=== PATIENT | female | born 1970 | race Caucasian/White ===

== ENCOUNTER 2022-07-27 08:53 | Emergency (ER) | payer MEDICAID, SELFPAY ==
[2022-07-27 09:20] VITALS: BP 149/100; PULSE 85; RESP 20; TEMP 36.9; O2SAT 97; BMI 30.9
--- NOTE | 2022-07-27 09:32 | EXP.UTC ---
Discharge Plan Disposition Patient Disposition: Home, Self-Care Condition: Good Prescriptions Prescriptions: New ondansetron 4 mg tablet,disintegrating 4 mg PO Q8H PRN (Reason: nausea and vomiting) Qty: 10 0RF No Action venlafaxine 150 mg capsule,extended release 24hr 150 mg PO DAILY Label Comments: TAKE 1 CAPSULE BY MOUTH EVERY DAY naproxen 500 mg tablet 500 mg PO DAILY albuterol sulfate [Ventolin HFA] 90 mcg/actuation HFA aerosol inhaler inhalation Label Comments: INHALE 2 PUFFS EVERY 4 HOURS NEEDED FOR WHEEZING OR SHORTNESS OF AIR loperamide 2 mg capsule 2 mg PO BID PRN venlafaxine 75 mg capsule,extended release 24hr 50 mg PO DAILY amoxicillin-pot clavulanate 875-125 mg tablet 1 tab PO BID 10 Days Qty: 20 0RF Referrals Follow up/Referrals: Provider,Referral, MD [Primary Care Provider] - See instructions Activity Restrictions/Add. Instructions Additional Instructions/Restrictions: Drink extra fluids with and between meals. If you have difficulty drinking, try very small amounts of water or suck on ice chips. ? Avoid fruit juices, as these do not replace minerals and can actually increase diarrhea. ? Children and adults can use sports drinks to replenish electrolytes. Younger children and infants should use products formulated for children, like oral rehydration solutions. ? Eat food in small amounts and let your stomach recover. ? Get lots of rest. You may feel tired or weak. ? No greasy or fried foods for the next 24-48 hours BRAT diet Bananas Rice Apples and [place] ? Make sure to drink plenty of liquids ? Return if needed ? Straight to ER if any life threatening symptoms ? Zofran as prescribed ? Follow up with family doctor in the next 48-72 hours if no improvement or any worsening of symptoms Call today and make appointment with your PCP Clinical Impressions Clinical Impression: Nausea Stand Alone Forms Stand Alone Forms: Work/School Release Instructions Patient Instructions: DI for Nausea -- Adult, Ondansetron Discharge ED Provider: Kanchan Merrill [facility] HPI General Stated complaint: Nausea Mode of Arrival: Ambulatory Source of Information: Patient Limitations: No Limitations Time Seen by Provider: 07/27/22 09:32 Description of Symptoms (Recalled from Triage Doc. by RN): PATIENT C/O NAUSEA, DECREASED APPETITE, AND INTERMITTEN DIZZINESS X 1 WEEK HEENT Symptoms (Recalled from RN notes): No Resp Symptoms (Recalled from RN notes): No Skin Symptoms (Recalled from RN notes): No MS Symptoms (Recalled from RN notes): No Functional Status (Recalled from RN notes): WNL History of Present Illness Provider Complaint: Patient states that at times she will go through bouts of nausea that may last a couple weeks at times States that she has been having nausea for the last week States that she has tried Zofran but not helping much States that she was hoping to try phenergan to see if that would help States that she has dizziness on and off also but not had any in the last couple of days Denies vomiting denies diarrhea Denies fever denies chills just states she gets nauseous at times Related Data Home Medications Medication Instructions Recorded Confirmed albuterol sulfate 90 mcg/actuation g inhalation 07/24/22 07/24/22 aerosol inhaler (Ventolin HFA) loperamide 2 mg capsule 2 mg PO BID PRN 07/24/22 07/24/22 naproxen 500 mg tablet 500 mg PO DAILY 07/24/22 07/24/22 venlafaxine 150 mg 150 mg PO DAILY 07/24/22 07/24/22 capsule,extended release 24 hr venlafaxine 75 mg capsule,extended 50 mg PO DAILY 07/24/22 07/24/22 release 24 hr Previous Rx's Medication Instructions Recorded amoxicillin 875 mg-potassium 1 tab PO BID 10 days #20 tabs 07/24/22 clavulanate 125 mg tablet ondansetron 4 mg disintegrating 4 mg PO Q8H PRN nausea and 07/27/22 tablet vomiting #10 tabs
[2022-07-27 09:44] VITALS: BP 149/100; PULSE 85; RESP 20; TEMP 36.9; O2SAT 97
== END 2022-07-27 09:49 | disposition home or self-care (01) ==
PROVIDERS: Emergency Provider Nurse Practitioner
DX: R11.0 Nausea (principal)
CPT/HCPCS: 99212; G0463

== ENCOUNTER 2022-08-24 07:17 | Emergency (ER) | payer MEDICAID, SELFPAY ==
[2022-08-24 07:34] VITALS: BP 140/86; PULSE 84; RESP 19; TEMP 37.1; O2SAT 93; BMI 29.2
[2022-08-24 07:59] LABS: Coronavirus 19, PCR Not Detected (NotDetected); Influenza A, PCR Not Detected (NotDetected); Influenza B, PCR Not Detected (NotDetected)
[2022-08-24 08:26] LABS: Basophils # 0.1 K/mm3 (0-0.2); Basophils % 0.9 % (0.1-2.0); Eosinophils # 0.1 K/mm3 (0.0-0.4); Eosinophils % 1.5 % (0.1-12.0); Hematocrit 40.9 % (37.0-47.0); Hemoglobin 13.2 g/dL (12.2-16.2); Lymphocytes # 1.9 K/mm3 (0.7-4.5); Lymphocytes % 26.7 % (10-50); Mean Corpuscular HGB Conc 32.2 g/dL (31.8-35.4); Mean Corpuscular Hemoglobin 33.3 pg (27.0-31.2); Mean Corpuscular Volume 103.5 fl (81-99); Mean Platelet Volume 8.3 fl (7.4-10.4); Monocytes # 0.3 K/mm3 (0.1-1.0); Monocytes % 4.8 % (1.7-9.3); Neutrophils # 4.6 K/mm3 (1.8-7.8); Neutrophils % 66.2 % (37.0-80.0); Platelet Count 284 K/mm3 (142-424); Red Blood Count 3.95 M/mm3 (4.20-5.40); Red Cell Distribution Width 13.2 % (11.5-17.5); White Blood Count 6.9 K/mm3 (4.8-10.8)
[2022-08-24 08:30] LABS: Chloride 107 mmol/L (98-107); Sodium 139 mmol/L (136-145)
--- NOTE | 2022-08-24 08:31 | XR_ITS ---
FINAL REPORT CLINICAL HISTORY: muscle aches, possible fever FINDINGS: 2 views of the chest were obtained . The heart is normal in size. The mediastinum is within normal limits. The lungs are clear. There is no pneumothorax. Osseous structures are unremarkable. IMPRESSION: No acute cardiopulmonary process. Reviewed, Interpreted and Dictated by Oscar Logan MD Transcribed by Debbie Davison Authenticated and [facility]
--- NOTE | 2022-08-24 08:31 | HMH.EDGENADL ---
Discharge Plan Disposition Patient Disposition: Home, Self-Care Condition: Good Chief Complaint: Back Pain/Injury Prescriptions Prescriptions: No Action venlafaxine 150 mg capsule,extended release 24hr 150 mg PO DAILY Label Comments: TAKE 1 CAPSULE BY MOUTH EVERY DAY naproxen 500 mg tablet 500 mg PO DAILY albuterol sulfate [Ventolin HFA] 90 mcg/actuation HFA aerosol inhaler inhalation Label Comments: INHALE 2 PUFFS EVERY 4 HOURS NEEDED FOR WHEEZING OR SHORTNESS OF AIR loperamide 2 mg capsule 2 mg PO BID PRN venlafaxine 75 mg capsule,extended release 24hr 50 mg PO DAILY amoxicillin-pot clavulanate 875-125 mg tablet 1 tab PO BID 10 Days Qty: 20 0RF ondansetron 4 mg tablet,disintegrating 4 mg PO Q8H PRN (Reason: nausea and vomiting) Qty: 10 0RF Referrals Follow up/Referrals: Provider,MD Mariana [Referring] - See instructions Gallito Epstein MD [Staff Physician] - See instructions Activity Restrictions/Add. Instructions Additional Instructions/Restrictions: Rest and drink plenty of fluids. Tylenol as needed for pain. Follow-up with Dr. Epstein tomorrow in his office, 10 AM or 1 PM. Clinical Impressions Clinical Impression: Myalgia, Rhabdomyolysis Instructions Patient Instructions: DI for Rhabdomyolysis Discharge ED Provider: Khadar Ayoub General Adult HPI General Chief complaint: Back Pain/Injury Stated complaint: Bodyaches cough SOA Time Seen by Provider: 08/24/22 08:26 Mode of Arrival: Ambulatory Source of Information: Patient Limitations: No Limitations Description of Symptoms (Recalled from ER Triage Doc. by RN): Pt c/o generalized body aches since 1/6 am, and low back pain R>L plus nausea, states she has missed work for two days History of Present Illness HPI narrative: Patient states that on Sunday evening, 2 days ago, she began having muscle fatigue which she describes as soreness in her arms and her legs. She says that she had trouble getting out of bed yesterday. She says last night she had a sleep laying flat on her back. No falls or injury. She thinks she might of had a fever because my eyeballs felt hot . She did not take her temperature. She denies URI symptoms such as rhinorrhea or sore throat. She has a chronic cough which is unchanged. She denies urinary symptoms. She has chronic nausea, but no vomiting and no diarrhea. No abdominal pain. No known exposures. Related Data Home Medications Medication Instructions Recorded Confirmed albuterol sulfate 90 mcg/actuation g inhalation 07/24/22 07/24/22 aerosol inhaler (Ventolin HFA) loperamide 2 mg capsule 2 mg PO BID PRN 07/24/22 07/24/22 naproxen 500 mg tablet 500 mg PO DAILY 07/24/22 07/24/22 venlafaxine 150 mg 150 mg PO DAILY 07/24/22 07/24/22 capsule,extended release 24 hr venlafaxine 75 mg capsule,extended 50 mg PO DAILY 07/24/22 07/24/22 release 24 hr Previous Rx's Medication Instructions Recorded amoxicillin 875 mg-potassium 1 tab PO BID 10 days #20 tabs 07/24/22 clavulanate 125 mg tablet ondansetron 4 mg disintegrating 4 mg PO Q8H PRN nausea and 07/27/22 tablet vomiting #10 tabs Allergies Allergy/AdvReac Type Severity Reaction Status Date / Time ketorolac [From TORADOL] Allergy Intermediate Verified 07/24/22 14:58 codeine [CODEINE] Allergy Unknown Verified 07/24/22 14:58 lamotrigine [From LAMICTAL] Allergy Unknown Verified 07/24/22 14:58 PFS PFS Disclaimer: The information contained in this section may have been updated after the patient was seen, as this information can be updated by other users. Medical History (Updated 08/24/22 @ 13:04 by Khadar Ayoub MD) Anxiety Cervical vertebral fusion Degenerative disc disease Depression Hypertension Surgical History (Updated 07/27/22 @ 09:29 by Tere Muir RN) History of section History of tubal ligation Family History (Updated 07/24/22 @ 15:07 by
[2022-08-24 08:33] LABS: Alanine Aminotransferase 48 U/L (12-78); Albumin Level 4.3 g/dl (3.5-5.0); Alkaline Phosphatase 123 U/L (38-126); Aspartate Amino Transferase 154 U/L (14-36); Bilirubin,Total 1.2 mg/dl (0.2-1.3); Blood Urea Nitrogen 19 mg/dl (7-17); Carbon Dioxide 24 mmol/L (22.0-30.0); Creatinine Clearance Estimated 116 mL/min (50-200); Estimated Glomerular Filt Rate 88 ml/min (>60); GFR (African American) 107 ML/MIN (>60); Globulin 4.3 g/dL (1.3-3.2); Total Protein,Serum 8.6 g/dl (6.3-8.2)
[2022-08-24 08:34] LABS: Calcium 8.8 mg/dl (8.4-10.2); Glucose 95 mg/dl (74-100)
--- NOTE | 2022-08-24 08:42 | PC.NURSE ---
Pt being taken for chest xray
[2022-08-24 08:57] LABS: Erythrocyte Sedimentation Rate 21 mm/hr (0-30)
[2022-08-24 09:20] LABS: Creatine Kinase 2312 U/L (30-135)
[2022-08-24 09:31] VITALS: BP 91/57; PULSE 85; O2SAT 98
[2022-08-24 09:43] LABS: Magnesium 2.2 mg/dl (1.6-2.3)
--- NOTE | 2022-08-24 10:00 | PC.NURSE ---
rounded on patient, she reports no needs at this time. call light within reach
--- NOTE | 2022-08-24 10:09 | PC.NURSE ---
patient given ice chips, no other needs at this time
[2022-08-24 10:10] LABS: Free Thyroxine Index 1.9 ug/dL (5.93-13.13); T4 (Thyroxine) 6.7 ug/dl (5.53-11.0); Triiodothryronine (T3) Uptake 29 % (23.5-40.5)
[2022-08-24 10:21] VITALS: BP 95/53; PULSE 84; RESP 20; O2SAT 97
[2022-08-24 10:24] LABS: Thyroid Stimulating Hormone 0.99 uIU/mL (0.465-4.68)
[2022-08-24 10:30] VITALS: BP 84/47; PULSE 85; RESP 20; O2SAT 100
--- NOTE | 2022-08-24 10:34 | PC.NURSE ---
rounded on patient at this time. Updated on POC and wait times. PT agreeable. Turned TV on patient and ensured call-light was within reach and pt aware of how to use it.
[2022-08-24 10:35] LABS: Microscopic, Urine URINE MICROSCOPIC (MICROSCOPIC)
[2022-08-24 10:40] LABS: Appearance,Urine CLEAR (Clear); Bilirubin,Urine Negative (Negative); Blood, Urine TRACE-I (Negative); Color,Urine YELLOW (Yellow); Glucose,Urine (UA) Negative (Negative); Ketones,Urine Negative (Negative); Leukocyte Esterase,Urine Negative (Negative); Nitrate,Urine Negative (Negative); PH,Urine 6.5 (5.0-8.5); Protein,Urine Negative (Negative); Urobilinogen,Urine 0.2 EU/dl (0.2)
[2022-08-24 10:51] LABS: Bacteria,Urine Trace /lpf; RBC,Urine Occasional #/hpf (0-3); WBC,Urine Occasional #/hpf (0-3)
--- NOTE | 2022-08-24 11:13 | PC.NURSE ---
Rounded on pt. Resting comfortably in the bed at this time. Vitals cycling. No questions or concerns at this time.
--- NOTE | 2022-08-24 11:13 | PC.NURSE ---
provided pt with warm blanket.
[2022-08-24 13:21] VITALS: BP 116/69; PULSE 71; RESP 17; TEMP 36.6; O2SAT 98
== END 2022-08-24 13:24 | disposition home or self-care (01) ==
PROVIDERS: Emergency Provider Emergency Medicine; PCP Family Medicine
DX: M62.82 Rhabdomyolysis (principal); F41.9 Anxiety disorder, unspecified; I10 Essential (primary) hypertension; F17.210 Nicotine dependence, cigarettes, uncomplicated; Z98.51 Tubal ligation status; Z82.49 Family history of ischemic heart disease and other diseases of the circulatory system; Z20.822 Contact with and (suspected) exposure to COVID-19
CPT/HCPCS: 71046; 80053; 81001; 82550; 83735; 84436; 84443; 84479; 85025; 85651; 86140; 96360; 96361; 99285; C9803; U0003; U0005

== ENCOUNTER → 2022-08-26 13:01 | Outpatient (CLI) | payer MEDICAID, SELFPAY ==
[2022-08-26 13:29] LABS: Basophils # 0.1 K/mm3 (0-0.2); Basophils % 0.6 % (0.1-2.0); Eosinophils # 0.1 K/mm3 (0.0-0.4); Eosinophils % 1.1 % (0.1-12.0); Hematocrit 39.6 % (37.0-47.0); Hemoglobin 13.2 g/dL (12.2-16.2); Lymphocytes # 1.2 K/mm3 (0.7-4.5); Lymphocytes % 11.8 % (10-50); Mean Corpuscular HGB Conc 33.3 g/dL (31.8-35.4); Mean Corpuscular Volume 99.1 fl (81-99); Mean Platelet Volume 7.5 fl (7.4-10.4); Monocytes # 0.2 K/mm3 (0.1-1.0); Monocytes % 2.2 % (1.7-9.3); Neutrophils # 8.7 K/mm3 (1.8-7.8); Neutrophils % 84.4 % (37.0-80.0); Platelet Count 325 K/mm3 (142-424); Red Blood Count 3.99 M/mm3 (4.20-5.40); Red Cell Distribution Width 13.4 % (11.5-17.5); White Blood Count 10.3 K/mm3 (4.8-10.8)
[2022-08-26 13:52] LABS: Alanine Aminotransferase 46 U/L (12-78); Albumin Level 4.4 g/dl (3.5-5.0); Albumin/Globulin Ratio 1.5 (1.1-1.8); Alkaline Phosphatase 76 U/L (38-126); Anion Gap 11.2 mEq/L (5-15); Aspartate Amino Transferase 55 U/L (14-36); Bilirubin,Total 0.5 mg/dl (0.2-1.3); Blood Urea Nitrogen 15 mg/dl (7-17); Calcium 9.4 mg/dl (8.4-10.2); Carbon Dioxide 26 mmol/L (22.0-30.0); Chloride 106 mmol/L (98-107); Estimated Glomerular Filt Rate 88 ml/min (>60); GFR (African American) 107 ML/MIN (>60); Glucose 108 mg/dl (74-100); Potassium 4.2 mmoL/L (3.5-5.1); Sodium 139 mmol/L (136-145); Total Protein,Serum 7.4 g/dl (6.3-8.2)
[2022-08-26 13:57] LABS: C-Reactive Protein 9.2 mg/L (0-4)
[2022-08-26 14:10] LABS: Erythrocyte Sedimentation Rate 59 mm/hr (0-30)
[2022-08-28 13:23] LABS: Anti-Centromere B Antibodies <0.2 AI (0.0-0.9); Anti-Cyclic Citrullinated Pept 4 units (0-19); Anti-DNA (DS) Ab Qn 1 IU/mL (0-9); Anti-Jo-1 <0.2 AI (0.0-0.9); Anti-Smith Antibody <0.2 AI (0.0-0.9); Antichromatin Antibodies <0.2 AI (0.0-0.9); Antiscleroderma-70 Antibodies <0.2 AI (0.0-0.9); RNP Antibodies <0.2 AI (0.0-0.9); Sjogren's Anti-SS-A <0.2 AI (0.0-0.9); Sjogren's Anti-SS-B <0.2 AI (0.0-0.9)
[2022-08-28 22:08] LABS: RA Latex Turbid. 10.2 IU/mL (<14.0)
[2022-08-30 10:41] LABS: Lupus Reflex Interpretation Comment: (.); PTT-LA 22.2 sec (0.0-43.5); dRVVT 36.5 sec (0.0-47.0)
== END ==
PROVIDERS: PCP Emergency Medicine; Visit Provider Emergency Medicine
DX: R06.00 Dyspnea, unspecified (principal); M62.82 Rhabdomyolysis; R11.0 Nausea
CPT/HCPCS: 36415; 80053; 85025; 85613; 85651; 86140; 86200; 86225; 86235; 86431

== ENCOUNTER 2022-11-09 00:13 | Emergency (ER) | payer MEDICAID, SELFPAY ==
[2022-11-09] VITALS (11 sets, daily range): BP systolic 117–198; BP diastolic 70–118; PULSE 65–81; RESP 15–18; TEMP 36.6–36.7; O2SAT 91–98; BMI 30.1
--- NOTE | 2022-11-09 00:20 | ECG_ITS ---
APPROVED REPORT Exam: Resting ECG HR:65 bpm ECG Measurements Heart Rate 65 AXES MI 116 P 58 QRSd 101 QRS 50 QT 392 T 60 QTc 404 Conclusion SINUS RHYTHM WITH SHORT MI INTERVAL INCOMPLETE RIGHT BUNDLE BRANCH BLOCK [90+ ms QRS DURATION, TERMINAL R IN V1/V2, 40+ ms S IN I/aVL/V4/V5/V6] BORDERLINE ECG UNCONFIRMED REPORT Electronically signed by : Arik Clayton MD 11/09/2022 21:14:32
--- NOTE | 2022-11-09 00:48 | XR_ITS ---
PROCEDURE INFORMATION: Exam: XR Chest Exam date and time: 11/09/2022 1:23 AM Age: 52 years old Clinical indication: Sternal or substernal pain; Additional info: Chest pain TECHNIQUE: Imaging protocol: Radiologic exam of the chest. Views: 2 views. COMPARISON: CR XR CHEST 2V 08/24/2022 8:34 AM FINDINGS: Lungs: Unremarkable. No consolidation. Pleural spaces: Unremarkable. No pleural effusion. No pneumothorax. Heart/Mediastinum: Unremarkable. No cardiomegaly. Vasculature: Unremarkable. Bones/joints: There is evidence for ACDF. [id number] degenerative changes of the midthoracic spine. IMPRESSION: No acute findings.
[2022-11-09 00:59] LABS: Basophils # 0.1 K/mm3 (0-0.2); Basophils % 0.9 % (0.1-2.0); Eosinophils # 0.5 K/mm3 (0.0-0.4); Eosinophils % 7.6 % (0.1-12.0); Hemoglobin 14.3 g/dL (12.2-16.2); Lymphocytes # 3.1 K/mm3 (0.7-4.5); Lymphocytes % 49.7 % (10-50); Mean Corpuscular HGB Conc 32.6 g/dL (31.8-35.4); Mean Corpuscular Volume 98.3 fl (81-99); Mean Platelet Volume 7.3 fl (7.4-10.4); Monocytes # 0.3 K/mm3 (0.1-1.0); Monocytes % 4.4 % (1.7-9.3); Neutrophils # 2.3 K/mm3 (1.8-7.8); Neutrophils % 37.3 % (37.0-80.0); Platelet Count 223 K/mm3 (142-424); Red Blood Count 4.48 M/mm3 (4.20-5.40); White Blood Count 6.2 K/mm3 (4.8-10.8)
[2022-11-09 01:01] LABS: Lipase 80 U/L (23-300)
[2022-11-09 01:02] LABS: Alanine Aminotransferase 15 U/L (12-78); Albumin Level 4.2 g/dl (3.5-5.0); Albumin/Globulin Ratio 1.3 (1.1-1.8); Alkaline Phosphatase 72 U/L (38-126); Amylase 84 U/L (30-110); Aspartate Amino Transferase 28 U/L (14-36); Bilirubin,Total 0.3 mg/dl (0.2-1.3); Blood Urea Nitrogen 13 mg/dl (7-17); Carbon Dioxide 32 mmol/L (22.0-30.0); Chloride 101 mmol/L (98-107); Creatinine Clearance Estimated 114 mL/min (50-200); Estimated Glomerular Filt Rate 88 ml/min (>60); GFR (African American) 106 ML/MIN (>60); Globulin 3.3 g/dL (1.3-3.2); Glucose 85 mg/dl (74-100); Sodium 139 mmol/L (136-145); Total Protein,Serum 7.5 g/dl (6.3-8.2)
--- NOTE | 2022-11-09 01:04 | HMH.EDCP ---
Discharge Plan Disposition Patient Disposition: Home, Self-Care Chief Complaint: Chest Pain Prescriptions Prescriptions: No Action metoprolol succinate 100 mg tablet extended release 24 hr 100 mg PO DAILY aripiprazole 5 mg tablet 5 mg PO DAILY promethazine 25 mg tablet 25 mg PO TID PRN (Reason: nausea and vomiting) Qty: 30 2RF venlafaxine 150 mg capsule,extended release 24hr 150 mg PO DAILY Label Comments: TAKE 1 CAPSULE BY MOUTH EVERY DAY albuterol sulfate [Ventolin HFA] 90 mcg/actuation HFA aerosol inhaler inhalation Label Comments: INHALE 2 PUFFS EVERY 4 HOURS NEEDED FOR WHEEZING OR SHORTNESS OF AIR venlafaxine 75 mg capsule,extended release 24hr 50 mg PO DAILY naproxen 500 mg tablet See Rx Instructions .ROUTE .COMPLEX Qty: 30 0RF Dose Instruction: TAKE 1 TABLET BY MOUTH DAILY FOR INFLAMMATION Rx Instructions: TAKE 1 TABLET BY MOUTH DAILY FOR INFLAMMATION ondansetron 4 mg tablet,disintegrating 4 mg PO Q8H PRN (Reason: nausea and vomiting) Qty: 10 0RF Referrals Follow up/Referrals: Gallito Epstein MD [Primary Care Provider] - See instructions Clinical Impressions Clinical Impression: Atypical chest pain Instructions Patient Instructions: DI for Atypical Chest Pain Discharge ED Provider: Tete (ED)Gallito Chest Pain HPI General Chief Complaint: Chest Pain Stated Complaint: heartburn Time Seen by Provider: 11/09/22 01:04 Mode of Arrival: Ambulatory Source of Information: Patient and Medical Record Limitations: No Limitations Description of Symptoms (Recalled from ER Triage Doc. 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 Pt also c/o nausea. Denies any radiation. History of Present Illness HPI narrative: pt with acute chest pain /epigastric pain complaint: chest pain indicative of cardiac Onset (ago): hour(s) Activity at onset: during rest Pain location: epigastric Severity: moderate Risk Factors for CAD: Hypertension, Family Hx of CAD and Smoking Treatments prior to or on arrival for Cardiac Chest Pain: none ARCHANA Score for Non-Stemi Age of Patient: 50-59 years old Heart Rate: 50-69 bpm Systolic Blood Pressure: 140-159 mmHg Serum Creatinine: 0.40-0.79 mg/dl CHF [place] Class: I-No CHF Other Risk Factors: None Non-Stemi Risk Score: 72 Risk Stratification: 1-108 = Low Risk Related Data On Oral Contraceptives: No Home Medications Medication Instructions Recorded Confirmed albuterol sulfate 90 mcg/actuation g inhalation 07/24/22 09/11/22 aerosol inhaler (Ventolin HFA) venlafaxine 150 mg 150 mg PO DAILY 07/24/22 09/11/22 capsule,extended release 24 hr venlafaxine 75 mg capsule,extended 50 mg PO DAILY 07/24/22 09/11/22 release 24 hr aripiprazole 5 mg tablet 5 mg PO DAILY 08/25/22 09/11/22 metoprolol succinate 100 mg 100 mg PO DAILY 08/25/22 09/11/22 tablet,extended release 24 hr Previous Rx's Medication Instructions Recorded ondansetron 4 mg disintegrating 4 mg PO Q8H PRN nausea and 07/27/22 tablet vomiting #10 tabs promethazine 25 mg tablet 25 mg PO TID PRN nausea and 08/25/22 vomiting #30 tabs naproxen 500 mg tablet See Rx Instructions .Route 10/18/22 .COMPLEX #30 tabs Allergies Allergy/AdvReac Type Severity Reaction Status Date / Time codeine [CODEINE] Allergy Unknown Verified 08/25/22 11:15 lamotrigine [From LAMICTAL] Allergy Unknown Verified 08/25/22 11:15 [facility] Disclaimer: The information contained in this section may have been updated after the patient was seen, as this information can be updated by other users. Medical History Anxiety Cervical vertebral fusion Degenerative disc disease Depression Hypertension Surgical History History of section History of tubal ligation Family History (Reviewed 09/11/22 @ 13:2
[2022-11-09 01:11] LABS: NT Pro Brain Natriuretic Pep. 128 pg/mL (0-125)
[2022-11-09 01:29] LABS: Troponin I < 0.01 ng/ml (0.00-0.034)
--- NOTE | 2022-11-09 03:51 | PC.NURSE ---
Pt placed on 2l/nc with sleep, oxygen saturation 87%
[2022-11-09 04:24] LABS: Troponin I < 0.01 ng/ml (0.00-0.034)
== END 2022-11-09 05:04 | disposition home or self-care (01) ==
PROVIDERS: Emergency Provider Emergency Medicine; PCP Emergency Medicine
DX: R07.89 Other chest pain (principal); R10.13 Epigastric pain; R11.0 Nausea; F17.200 Nicotine dependence, unspecified, uncomplicated
CPT/HCPCS: 71046; 80053; 82150; 83690; 83880; 84484; 85025; 93005; 96361; 96374; 96375; 99285

== ENCOUNTER → 2023-05-04 08:26 | Outpatient (CLI) | payer MEDICAID, SELFPAY | PROVIDERS: PCP Student in an Organized Health Care Education/Training Program; Visit Provider Student in an Organized Health Care Education/Training Program | DX: U07.1 COVID-19 (principal); J02.9 Acute pharyngitis, unspecified; R05.8 Other specified cough; R09.89 Other specified symptoms and signs involving the circulatory and respiratory systems; R06.02 Shortness of breath | CPT/HCPCS: 87070; 87635 ==

== ENCOUNTER 2024-11-24 11:53 | Outpatient (CLI) | payer MEDICAID, SELFPAY ==
--- NOTE | 2024-11-24 11:56 | XR_ITS ---
FINAL REPORT TECHNIQUE: Chest PA & Lateral CLINICAL HISTORY: cough, soa COMPARISON: 08/24/2022 FINDINGS: 2 views of the chest were performed. The heart size is normal. The mediastinum is within normal limits. Mild scarring is present in the right lung base. There is no acute cardiopulmonary process. There are no pleural effusions. There is no pneumothorax. The bony thorax appears intact. There has been prior anterior cervical fusion in the lower cervical spine. IMPRESSION: No acute cardiopulmonary process. Reviewed, Interpreted and Dictated by Oscar Logan MD Transcribed by Tracey Kenny Authenticated and [facility]
== END 2024-11-24 23:59 | disposition home or self-care (01) ==
LOC: RAD 11:54
PROVIDERS: Visit Provider Student in an Organized Health Care Education/Training Program
DX: R05.9 Cough, unspecified (principal)
CPT/HCPCS: 71046

== ENCOUNTER 2025-01-10 11:26 | Outpatient (CLI) | payer MEDICAID, SELFPAY ==
--- OUTSIDE RECORDS SUMMARY | 2025-01-12 11:28 | XMS_ITS | Patient Health Record ---
Author Organization [facility] Address [address] [place] [address] Care Team Providers Care Investment Consultant Name Role Phone Anselmoalexxmyke Adan GARDNER Unavailable [phone] Savannah Dean Unavailable Unavailable ALLERGIES Allergen (clinical drug ingredient) Drug/Non Drug Allergy documented on EMR Reaction Allergy Type Onset Date Status lamotrigine LaMICtal Unknown Drug Allergy Activ e REASON FOR REFERRAL No Information MEDICATIONS Medication SIG (Take, Route, Frequency, Duration) Notes Start Date End Date Status prazosin 2 mg 1 cap(s) orally 3 ti mes a day for 30 day(s) 01/09/2023 Active TiZANidine Hydrochloride 4 mg 1 tab(s) orally 3 times a day for 30 day(s) Active Ibu 800 mg 1 tab(s) orally 3 ti mes a day for 30 day(s) Active ibuprofen 600 mg 1 tab(s) orally ever y 6 hours Active metoprolol 100 mg 1 tab(s) orally once a day Active Zoloft 100 mg 2 tab(s) orally once a day Active ARIPiprazole 15 mg for 30 A ctive naproxen 500 mg for 30 Acti ve PROBLEMS Problem Type ICD Code Onset Dates Problem Status W/U Status Risk SNOMED Code Notes Problem Spondylosis without myelopathy or radiculopathy, cervical region (M47.812) Active confirmed Cervical spondylosis without myelopathy (672194841) Problem Spondylosis without myelopathy or radiculopathy, lumbar region (M47.816) Active confirmed Lumbosacral spondylosis without myelopathy (71894193) Problem Postlaminectomy syndrome, not elsewhere classified (M96.1) Active confirmed Post-lami necto my syndrome (71588937) Problem Carpal tunnel syndrome, bilateral upper limbs (G56.03) Active confirmed Carpal tunnel syndrome (51468215) Problem lumbar spondylosis (M47.816) Active confirmed Lumbar spondylosis (440590174) Problem cervical spondylosis (M47.812) Active confirmed Cervical spondylosis (784097486) PLAN OF TREATMENT Pending Test Test Name Order Date Xray: Lumbar Spine 01/31/2023 Xray Cervical spine 01/31/2023 Urine Test ANALYZER 02/26/2023 Urine Test LCMS Definitive 01/31/2023 Insurance Providers Payer Name Payer Address Payer Phone Subscriber Number Group Number Insured Name Patient Relationship to Insured Coverage Start Date Coverage End Date [employer] [address] [address] [place] [address] [id number] Kanchan Mayfield Self - patient is the insured 3 MEDICAL (GENERAL) HISTORY Medical History History ICD Code asthma depression Surgical History Surgery Date(Month/Year) Cervical Fusion 2008 Cervical Fusion 2014
== END 2025-01-10 23:59 | disposition home or self-care (01) ==
LOC: LAB.DROPOF 01-12 11:26
PROVIDERS: Visit Provider Nurse Practitioner Family
DX: N39.0 Urinary tract infection, site not specified (principal)
CPT/HCPCS: 87086

== ENCOUNTER 2025-01-15 08:40 | Outpatient (CLI) | payer MEDICAID, SELFPAY ==
--- OUTSIDE RECORDS SUMMARY | 2025-01-19 11:10 | XMS_ITS | Patient Health Record ---
Author Organization [facility] Address [address] [place] [address] Care Team Providers Care Junior Web Developer Name Role Phone Adan Valiente II Unavailable [phone] Savannah Dean Unavailable Unavailable Allergies Allergen (clinical drug ingredient) Drug/Non Drug Allergy documented on EMR Reaction Allergy Type Onset Date Status lamotrigine LaMICtal Unknown Drug Allergy Activ e Reason For Referral No Information Medications Medication SIG (Take, Route, Frequency, Duration) Notes Start Date End Date Status prazosin 2 mg 1 cap(s) orally 3 ti mes a day; Duration: 30 day(s) 01/09/2023 Active TiZANidine Hydrochloride 4 mg 1 tab(s) orally 3 times a day; Duration: 30 day(s) Active Ibu 800 mg 1 tab(s) orally 3 ti mes a day; Duration: 30 day(s) Active ibuprofen 600 mg 1 tab(s) orally ever y 6 hours Active metoprolol 100 mg 1 tab(s) orally once a day Active Zoloft 100 mg 2 tab(s) orally once a day Active ARIPiprazole 15 mg ; Duration: 30 Active naproxen 500 mg ; Duration: 30 Active Problems Problem Type SNOMED Code ICD Code Onset Dates Problem Status W/U Status Risk Notes Problem Cervical spondylosis without myelopathy (469870362) Spondylosis without myelopathy or radiculopathy, cervical region (M47.812) Active confirmed Problem Lumbosacral spondylosis without myelopathy (18061691) Spondylosis without myelopathy or radiculopathy, lumbar region (M47.816) Active confirmed Problem Postlaminectomy syndrome, not elsewhere classified (M96.1) Active confirmed Problem Carpal tunnel syndrome (91742262) Carpal tunnel syndrome, bilateral upper limbs (G56.03) Active confirmed Problem lumbar spondylos is (M47.816) Active confirmed Problem cervical spondylosis (M47.812) Active confirmed Plan Of Treatment Pending Test Test Name Order Date Xray: Lumbar Spine 01/31/2023 Xray Cervical spine 01/31/2023 Urine Test LCMS Definitive 01/31/2023 Insurance Providers Payer Name Payer Address Payer Phone Subscriber Number Group Number Insured Name Patient Relationship to Insured Coverage Start Date Coverage End Date [employer] [address] [address] [place] [address] [id number] Kanchan Mayfield Self - patient is the insured 3 Medical (General) History Medical History History ICD Code asthma depression Surgical History Surgery Date(Month/Year) Cervical Fusion 2014 Cervical Fusion 2008
== END 2025-01-15 23:59 | disposition home or self-care (01) ==
LOC: LAB.DROPOF 01-19 10:45
PROVIDERS: PCP Student in an Organized Health Care Education/Training Program; Visit Provider Student in an Organized Health Care Education/Training Program
DX: R30.0 Dysuria (principal); N39.0 Urinary tract infection, site not specified
CPT/HCPCS: 87086; 87491; 87591; 87661

== ENCOUNTER 2025-02-04 12:20 | Emergency (ER) | payer SELFPAY ==
--- OUTSIDE RECORDS SUMMARY | 2020-05-13 09:05 | XMS_ITS | Encounter Summary ---
[facility] Address [address] [place] [address] Care Team Providers Care Supervisor Heavy Equipment Name Role Phone Marisa Hess Primary Care Provider [phone] Encounter Details Date Type Department Care Team (Late st Contact Info) Description 05/13/2020 9:05 AM EDT Hospital Encounter [facility] PUL[facility]ITICAL CARE MEDICINE [address] [place] [phone] Social History Tobacco Use Types Packs/Day Years Used Date Smoking Tobacco: Every Day Cigarettes 1 32.2 Started: 07/16/1998 Smokeless Tobacco: Never Alcohol Use Standard Drinks/Week Comments Not Currently 0 (1 standard drink = 0.6 oz pur e alcohol) AUDIT-C Answer Date Recorded Q1: How often do you have a drink containing alcohol? Never 03/31/2023 Q2: How many drinks containi ng alcohol do you have on a typical day when you are drinking? Patient does not drink Q3: How often do you have si x or more drinks on one occasion? Never 03/31/2023 PHQ-2 Answer Date Recorded Retired PHQ-9: Brief Depression Severity Measure Score 0 03/23/2023 Abuse Screen Answer Date Recorded Feels Unsafe at Home or Work/School no 03/30/2023 Feels Threatened by Someone no 03/16 Does Anyone Try to Keep You From Having Contact with Others or Doing Things Outside Your Home? no 03/30/2023 Physical Signs of Abuse Present no 03/30/2023 Housing Stability Answer Date Recorded Current Living Arrangements home 03/16 Potentially Unsafe Housing Conditions Not on thiago e 03/31/2023 Disabilities Answer Date Recorded Difficulty Concentrating, Remembering or Making Decisions yes 03/31/2023 Difficulty Managing Errands Independently no 03/31/2023 PHQ-2 Answer Date Recorded Patient Health Questionnaire-9 Score 24 12/26/2024 Comments No Sex and Gender Information Value Date Recorded Sex Assigned at Not on file Legal Sex Female 10:32 AM EDT Gender Identity Not on file Sexual Orientation Not on file documented as of this encounter Functional Status * Question Answer Date of Assessment Author 1. Wish to be (Past 1 Month) Yes 025 3:36 PM EDT Jerrica Duarte MA 2. Non-Specific Active Suici maxi Thoughts (Past 1 Month) Yes 12/26/2024 3:36 PM EDT Jerrica Duarte MA 3. Active Suicidal Ideation with any Methods (Not Plan) Without Intent to Act (Past 1 Month) Yes 12/26/2024 3:36 PM EDT Jerrica Duarte MA 4. Active Suicidal Ideation with Some Intent to Act, Without Specific Plan (Past 1 Month) Yes 12/26/2024 3:36 PM EDT Jerrica Duarte MA 5. Active Suicidal Ideation with Specific Plan and Intent (Past 1 Month) No 12/26/2024 3:36 PM EDT Jerrica Duarte MA * Calculated C-SSRS Risk Score (Lifetime/Recent) Answer Date of Assessment Author High Risk 12/26/2024 3:36 PM EDT Charles MA * [place] Suicide Severity Rating Scale (Screener/Recent Self-Report) Question Answer Date of Assessment Author 6. Suicidal Behavior (Lifetime) No 3:36 PM EDT Jerrica Duarte MA * Question Answer Date of Assessment Author Little interest or pleasure in doing things Nearly every day 12/26/2024 3:36 PM EDT Jerrica Duarte MA Feeling down, depressed, or hopeless Nearly every day 12/26/2024 3:36 PM EDT Jerrica Duarte MA Patient Health Questionnaire-2 Score 6 12/26/2024 3:36 PM EDT Jerrica Duarte M A Trouble falling or staying asleep, or sleeping too much Nearly every day 12/26/2024 3:36 PM EDT Jerrica Duarte MA Feeling tired or having little energy Nearly every day 12/26/2024 3:36 PM EDT Jerrica Duarte MA Poor appetite or overeating Nearly every day 12/26/2024 3:36 PM EDT Jerrica Duarte MA Feeling bad about yourself - or that you are a failure or have let yourself or your family down Nearly every day 12/26/2024 3:36 PM EDT Jerrica Duarte MA Trouble concentrating on things, such as reading the newspaper or watching television Nearly every day 12/26/2024 3:36 PM EDT Jerrica Duarte MA Moving or speaking so slowly that other people could have noticed? Or the opposite - being so fidgety or restless that you have been moving around a lot more than usual. Not at all 12/26/2024 3:36 PM EDT Jerrica Duarte MA Thoughts that you would be better off or hurting yourself in some way Nearly every day 12/26/2024 3:36 PM EDT Jerrica Duarte MA Patient Health Questionnaire-9 Score 24 12/26/2024 3:36 PM EDT Jerrica Duarte M A How difficult have these problems made it for you to do your work, take care of things at home, or get along with other people? Extremely difficult 12/26/2024 3:36 PM EDT Jerrica Duarte MA documented as of this encounter Plan of Treatment Not on file documented as of this encounter Procedures Procedure Name Priority Date/Time Associated Diagnosis Comments XR CHEST PA AND LATERAL Routine 05/13/2020 9:08 AM EDT SOB (shortness of breath) documented in this encounter Results * XR Chest PA & Lateral (05/13/2020 9:08 AM EDT) Anatomical Region Laterality Modality Body, Chest N/A Radiographic [place] Narrative 05/13/2020 9:46 AM EDT This is a PA/Lateral film. There is a plate in the cervical spine. The cardiac and mediastinal contours are within normal limits. The lungs are well expanded. There are chronic appearing interstitial changes bilaterally which are fibronodular in appearance and worse on the right. There is no pneumothorax or pleural effusion. Impression: Fibronodular interstitial changes, worse on the right. us Gela V. Case DO IMG DIAGNOSTIC IMAGING ORDERA BLES Final Result documented in this encounter Visit Diagnoses Not on filedocumented in this encounter Additional Health Concerns Infection Onset Date Last Indicated Resolved Time COVID (rule out) 05/07/2020 05/10/2020 05/14/2020 9:09 PM EDT COVID (rule out) 03/30/2023 03/30/2023 04/06/2023 9:08 PM EDT documented as of this encounter Care Teams Supervisor Heavy Equipment Relationship Specialty Start Date End Date Marisa Hess DO [address] [place] [place] [address] PCP - General Family Medicine 06/16/19 documented as of this encounter
--- OUTSIDE RECORDS SUMMARY | 2023-02-20 09:33 | XMS_ITS | Encounter Summary ---
Author Organization [facility] Address [address] [place] [address] Care Team Providers Care Transition Coach Name Role Phone JimenaMarisa cevallos Brie THAYER Primary Care Provider [phone] Encounter Details Date Type Department Care Team (Late st Contact Info) Description 02/20/2023 9:33 AM EDT Hospital Encounter [facility] [address] [place] [phone] Social History Tobacco Use Types Packs/Day [...] 12/26/2024 3:36 PM EDT Charles MA * [place] Suicide Severity Rating Scale (Screener/Recent Self-Report) Question [...] MD 02/20/2023 8:47 AM CDT Workstation ID: [id number] Narrative 02/20/2023 9:47 AM EDT XR CHEST [...] abnormalityidentified. IMPRESSION: Impression: Unremarkable exam Electronically Signed: aMnan Conway MD 02/20/2023 8:47 AM CDT Workstation ID: [id number] Taina Nuno APRN IMG DIAGNOSTIC IMAGING ORDER MARCELO Final Result documented in this encounter Visit Diagnoses Not on filedocumented in this encounter Additional Health Concerns Infection Onset Date Last Indicated Resolved Time COVID (rule out) 03/30/2023 03/30/2023 04/06/2023 9:08 PM EDT Assessment Noted Time PHQ-2 Depression Total Score: 1 04/24/20 22 10:53 AM EDT documented as of this encounter Care Teams Transition Coach Relationship Specialty Start Date End Date Marisa Hess DO [address] [place] [address] PCP - General Family Medicine 06/16/19 documented as of this encounter
--- OUTSIDE RECORDS SUMMARY | 2024-02-18 09:19 | XMS_ITS | Encounter Summary ---
[facility] Address [address] [place] [address] Care Team Providers Care Solar Sales Estimator Name Role Phone JimenaMarisa cevallos Brie THAYER Primary Care Provider [phone] Encounter Details Date Type Department Care Team (Late st Contact Info) Description 02/18/2024 9:19 AM EDT Hospital Encounter [facility] MEDICINE [address] [place] [phone] Social History Tobacco Use Types Packs/Day [...] 12/26/2024 3:36 PM EDT Charles MA * [place] Suicide Severity Rating Scale (Screener/Recent Self-Report) Question [...] Comments XR CHEST PA AND LATERAL Routine 02/18/2024 9:21 AM EDT Moderate COPD (chronic obstructive pulmonary disease) documented in this encounter Results * XR Chest PA & Lateral (02/18/2024 9:21 AM EDT) Anatomical Region Laterality Modality Body, Chest N/A Radiographic [place] ging 02/18/2024 3:40 PM EDT Impressions 02/18/2024 3:42 PM EDT Impression: No acute cardiopulmonary findings. Electronically Signed: Eron Pena MD 02/18/2024 3:42 PM EDT Workstation ID: [id number] Narrative 02/18/2024 3:42 PM EDT XR CHEST PA AND LATERAL Date of Exam: 02/18/2024 9:21 AM EDT Indication: COPD Comparison: Chest x-ray 02/20/2023 Findings: Normal cardiomediastinal silhouette. The lungs are clear. No pleural effusion or pneumothorax. No acute osseous findings. ACDF hardware is noted. Procedure Note Eron Pena MD - 02/18/2024 XR CHEST PA AND LATERAL Date of Exam: 02/18/2024 9:21 AM EDT Indication: COPD Comparison: Chest x-ray 02/20/2023 Findings: Normal cardiomediastinal silhouette. The lungs are clear. No pleuraleffusion or pneumothorax. No acute osseous findings. ACDF hardware isnoted. IMPRESSION: Impression: No acute cardiopulmonary findings. Electronically Signed: Eron Pena MD 02/18/2024 3:42 PM EDT Workstation ID: [id number] Taina Nuno APRN IMG DIAGNOSTIC IMAGING ORDER MARCELO Final Result documented in this encounter Visit Diagnoses Not on filedocumented in this encounter Additional Health Concerns Assessment Noted Time PHQ-2 Depression Total Score: 2 12/06/19 24 11:00 AM EDT documented as of this encounter Care Teams Solar Sales Estimator Relationship Specialty Start Date End Date Marisa Hess DO [address] [place] [address] PCP - General Family Medicine 06/16/19 documented as of this encounter
--- OUTSIDE RECORDS SUMMARY | 2024-12-26 15:30 | XMS_ITS | Encounter Summary ---
Author Organization [facility] Address [address] [place] [address] Care Team Providers Care Installer Molding And Trim Name Role Phone JimenaMarisa cevallos Brie THAYER Primary Care Provider [phone] Reason for Visit * Reason Comments Depression Anxiety. Quit Methad one and started Suboxone yesterday and started getting sick today. She has not reached out to that provider/clinic due to her anxiety and depression being worse than ever. Encounter Details Date Type Department Care Team (Late st Contact Info) Description 12/26/2024 3:30 PM EDT Office Visit [facility] [address] [place] [address] Tracey Hinds, DESIGN AGENT [address] [place] [address] Generalized anxiety disorder (Primary Dx); MDD (major depressive disorder), recurrent, in partial remission Social History Tobacco Use Types Packs/Day Years [...] on file documented as of this encounter Last Filed Vital Signs Vital Sign Reading Time Taken Comments Blood Pressure 124/88 12/26/2024 3:27 PM EDT Pulse 61 12/26/2024 3:27 PM EDT Temperature 36.3 C (97.3 F) 12/26/2024 3:27 PM EDT Respiratory Rate 14 12/26/2024 3:27 PM EDT Oxygen Saturation 95% 12/26/2024 3:27 PM EDT Inhaled Oxygen Concentration - - Weight 67.9 kg (149 lb 9.6 oz) 12/26/2024 3:27 P M EDT Height 162.6 cm (5' 4.02 ) 12/26/2024 3:27 PM ED T Body Mass Index 25.66 12/26/2024 3:27 PM EDT documented in this encounter Functional Status * Question Answer [...] 12/26/2024 3:36 PM EDT Charles MA * [place] Suicide Severity Rating Scale (Screener/Recent Self-Report) Question [...] Health Questionnaire-2 Score 6 12/26/2024 3:36 PM MARCT Jerrica Duarte M A Trouble falling or staying asleep, or sleeping too much Nearly every day 12/26/2024 3:36 PM MARCT Jerrica Duarte MA Feeling tired or having little energy Nearly every day 12/26/2024 3:36 PM MARCT Jerrica Duarte MA Poor appetite or overeating Nearly every day 12/26/2024 3:36 PM MARCT Jerrica Duarte MA Feeling bad about yourself - or that you are a failure or have let yourself or your family down Nearly every day 12/26/2024 3:36 PM MARCT Jerrica Duarte MA Trouble concentrating on things, such as reading the newspaper or watching television Nearly every day 12/26/2024 3:36 PM MARCT Jerrica Duarte MA Moving or speaking so slowly that other people could have noticed? Or the opposite - being so fidgety or restless that you have been moving around a lot more than usual. Not at all 12/26/2024 3:36 PM MARCT Jerrica Duarte MA Thoughts that you would [...] Duarte MA documented as of this encounter Progress Notes * Tracey Hinds, DESIGN AGENT - 12/26/2024 3:30 PM EDT Date: 12/26/2024 Patient Name: Kanchan Mayfield : 1970 Chief Complaint: Chief Complaint Patient presents with Depression Anxiety. Quit Methadone and started Suboxone yesterday and started getting sick today. She has not reached out to that provider/clinic due to her anxiety and depression being worse than ever. History of Present Illness: Kanchan Mayfield is a 54 y.o. female who is here today to follow up for HPI History of Present Illness The patient presents for evaluation of depression. She reports experiencing significant depressive symptoms, including feelings of hopelessness, self-harm ideation, and lack of energy. She has been under the care of [facility] but has not had a recent appointment. Currently, she is residing with her 80-year-old mother. She recently secured employment [employer] in [place], offering $19 per hour, and is motivated to maintain her stability. She expresses a desire to improve her self-care and distance herself from negative influences. She has previously undergone recovery and rehabilitation programs, including AA and the 12-step program, and plans to re-engage with these resources. She reports no current plans for self-harm or suicide. She has been non-compliant with her sertraline medication due to perceived ineffectiveness, although she acknowledges past benefits from the medication. She has tried various medications over the years, including Wellbutrin, but does not recall their effects. She discontinued Vraylar a few weeks ago. She experienced a recurrence of drug use on methadone last week, leading to cocaine use. She was initiated on Suboxone on 12/24/2024. SOCIAL HISTORY She admits to cocaine use and is currently living with her 80-year-old mother. Review of Systems: Review of Systems Psychiatric/Behavioral: Positive for sleep disturbance, depressed mood and stress. The patient is nervous/anxious. I have reviewed the patients family history, social history, past medical history, past surgical history and have updated it as appropriate. Medications: Current Outpatient Medications: albuterol (PROVENTIL) (2.5 MG/3ML) 0.083% nebulizer solution, Take 2.5 mg by nebulization 4 (Four) Times a Day As Needed for Wheezing., Disp: 120 each, Rfl: 5 albuterol sulfate HFA 108 (90 Base) MCG/ACT inhaler, INHALE 2 PUFFS BY MOUTH EVERY 4 HOURS NEEDED FOR WHEEZING, Disp: 18 g, Rfl: 5 buprenorphine-naloxone (SUBOXONE) 8-2 MG per SL tablet, dissolve 2 tablets under the tongue once a day, Disp: , Rfl: Cariprazine HCl (Vraylar) 1.5 MG capsule capsule, Take 1 capsule by mouth Daily., Disp: 30 capsule,Rfl: 5 Gqteaurscyp-Bwkmblfyh-Xebhmh (Trelegy Ellipta) 100-62.5-25 MCG/ACT inhaler, INHALE 1 PUFF BY MOUTH DAILY, Disp: 60 each, Rfl: 3 metoprolol tartrate (LOPRESSOR) 50 MG tablet, Take 1 tablet by mouth 2 (Two) Times a Day., Disp: 180 tablet, Rfl: 1 polyethylene glycol (MIRALAX) 17 GM/SCOOP powder, Take by mouth Daily., Disp: , Rfl: promethazine (PHENERGAN) 25 MG tablet, Take 0.5-1 tablets by mouth Every 6 (Six) Hours As Needed for Nausea or Vomiting., Disp: 10 tablet, Rfl: 0 tiZANidine (ZANAFLEX) 4 MG tablet, Take 1 tablet by mouth Every 8 (Eight) Hours As Needed for Muscle Spasms., Disp: 30 tablet, Rfl: 3 PARoxetine (Paxil) 10 MG tablet, Take 1 tablet by mouth Every Morning., Disp: 30 tablet, Rfl: 1 Current Facility-Administered Medications: cyanocobalamin injection 1,000 mcg, 1,000 mcg, Intramuscular, Q28 Days, Marisa Hess DO, 1,000 mcg at 01/15/24 1131 Allergies: Allergies Allergen Reactions Lamotrigine Other (See Comments) Ehsan Last Syndrome PHQ-9 Total Score: 24 Physical Exam: Vital Signs: Vitals: 12/26/24 1527 BP: 124/88 Pulse: 61 Resp: 14 Temp: 97.3 ??F (36.3 ??C) SpO2: 95% Weight: 67.9 kg (149 lb 9.6 oz) Height: 162.6 cm (64.02 ) Body mass index is 25.66 kg/m??. Physical Exam Vitals and nursing note reviewed. Constitutional: General: She is awake. Appearance: Normal appearance. She is well-developed. HENT: Head: Normocephalic and atraumatic. Cardiovascular: Rate and Rhythm: Normal rate and regular rhythm. Pulmonary: Effort: Pulmonary effort is normal. Breath sounds: Normal breath sounds. Neurological: Mental Status: She is alert and oriented to person, place, and time. Psychiatric: Attention and Perception: Attention normal. Mood and Affect: Mood is not anxious or depressed. Affect is not flat. Speech: Speech normal. Behavior: Behavior is cooperative. Cognition and Memory: Cognition is not impaired. Memory is not impaired. Assessment/Plan: Diagnoses and all orders for this visit: 1. Generalized anxiety disorder (Primary) - PARoxetine (Paxil) 10 MG tablet; Take 1 tablet by mouth Every Morning. Dispense: 30 tablet; Refill: 1 2. MDD (major depressive disorder), recurrent, in partial remission - PARoxetine (Paxil) 10 MG tablet; Take 1 tablet by mouth Every Morning. Dispense: 30 tablet; Refill: 1 - Cariprazine HCl (Vraylar) 1.5 MG capsule capsule; Take 1 capsule by mouth Daily. Dispense: 30 capsule; Refill: 5 Assessment & Plan 1. Depression. - Reports feeling helpless, having no energy, and experiencing thoughts of self- harm without plans to act on them. - Has not been taking sertraline as it was ineffective. - Paxil 10 mg will be started to help manage anxiety and depression; Vraylar will be reintroduced into the treatment regimen. - Samples of Vraylar will be provided; prescription for Paxil will be sent to pharmacy. 2. Substance Use Disorder. - Relapsed on cocaine last week while on methadone. - Recently started on Suboxone on Sunday. - Advised to continue with recovery steps, including counseling and therapy. - Plans to attend meetings and stay away from negative influences. Patient or patient labor service representative verbalized consent for the use of Ambient Listening during the visit with Tracey Hinds APRN for chart documentation. 12/26/2024 16:59 EDT Follow Up: Return in about 4 weeks (around 01/23/2025) for Recheck. Tracey Hinds. GISELA [facility] documented in this encounter Plan of Treatment Not on file documented as of this encounter Visit Diagnoses Diagnosis Generalized anxiety disorder- Primary MDD (major depressive disorder), recurrent, in partial remission documented in this encounter Additional Health Concerns Assessment Noted Time PHQ-2 Depression Total Score: 2 12/06/19 24 11:00 AM EDT documented as of this encounter Care Teams Installer Molding And Trim Relationship Specialty Start Date End Date Marisa Hess DO [address] [place] [address] PCP - General Family Medicine 06/16/19 documented as of this encounter
[2025-02-04 12:31] VITALS: BP 180/109; PULSE 60; RESP 18; TEMP 36.8; O2SAT 98; BMI 24.3
--- OUTSIDE RECORDS SUMMARY | 2025-02-04 12:48 | XMS_ITS | Encounter Summary ---
[facility] Address [address] [place] [address] Care Team Providers Care Pattern Grader Supervisor Name Role Phone Marisa Hess DO Primary Care Provider [phone] Reason for Visit * Reason Comments Med Refill Encounter Details Date Type Department Care Team (Late st Contact Info) Description 03/12/2020 Refill [facility] [address] [facility] [place] [address] Marisa Hess DO [address] [facility] [place] [address] Social History Tobacco Use Types Packs/Day Years Used Date Smoking Tobacco: Every Day Cigarettes 1 26.6 Started: 1998 Electronic Cigarette Smokeless Tobacco: Never Alcohol Use Standard Drinks/Week Comments Never 0 (1 standard drink = 0.6 oz pur e alcohol) AUDIT-C Answer Date Recorded Frequency of Alcohol Consumption Never 07/11/2019 Average Number of Drinks Not on file 019 Frequency of Binge Drinking Never 06/16 PHQ-2 Answer Date Recorded PHQ-2 Score 12 07/11/2019 Comments No Sex and Gender Information Value Date Recorded Sex Assigned at Not on file Legal Sex Female 10:32 AM EDT Gender Identity Not on file Sexual Orientation Not on file documented as of this encounter Plan of Treatment Not on file documented as of this encounter Visit Diagnoses Not on filedocumented in this encounter Additional Health Concerns Infection Onset Date Last Indicated Resolved Time COVID (rule out) 05/07/2020 05/10/2020 05/14/2020 9:09 PM EDT COVID (rule out) 03/30/2023 03/30/2023 04/06/2023 9:08 PM EDT documented as of this encounter Care Teams Pattern Grader Supervisor Relationship Specialty Start Date End Date Marisa Hess DO [address] [place] [address] PCP - General Family Medicine 06/16/19 documented as of this encounter
--- OUTSIDE RECORDS SUMMARY | 2025-02-04 12:48 | XMS_ITS | Patient Health Record ---
Author Organization [facility] Address [address] [place] [address] Care Team Providers Care Cognos Tm1 Developer Name Role Phone Adan Valiente II Unavailable Savannah Dean Unavailable Unavailable Allergies Allergen (clinical [...] Risk Notes Problem Cervical spondylosis without myelopathy (061570233) Spondylosis without myelopathy or radiculopathy, cervical region (M47.812) Active confirmed Problem Lumbosacral spondylosis without myelopathy (16750816) Spondylosis without myelopathy or radiculopathy, lumbar region (M47.816) Active confirmed Problem Post-laminectom y syndrome (32908796) Postlaminectomy syndrome, not elsewhere classified (M96.1) Active confirmed Problem Carpal tunnel syndrome (02930971) Carpal tunnel syndrome, bilateral upper limbs (G56.03) Active confirmed Problem Lumbar spondylosis (350559121) lumbar spondylosis (M47.816) Active confirmed Problem Cervical spondylosis (305187261) cervical spondylosis (M47.812) Active confirmed Plan Of Treatment Pending Test Test Name Order Date Xray: Lumbar Spine 01/31/2023 Xray Cervical spine 01/31/2023 Urine Test LCMS Definitive 01/31/2023 Insurance Providers Payer Name Payer Address Payer Phone Subscriber Number Group Number Insured Name Patient Relationship to Insured Coverage Start Date Coverage End Date [employer] [address] [address] [place] [address] [id number] Chaparro Kanchan Self - patient is the insured 3 Medical (General) History Medical History History ICD Code asthma depression Surgical History Surgery Date(Month/Year) Cervical Fusion 2014 Cervical Fusion 2008
--- OUTSIDE RECORDS SUMMARY | 2025-02-04 12:48 | XMS_ITS | Encounter Summary ---
[facility] Address [address] [place] [address] Care Team Providers Care Agency Sales Development Associate Name Role Phone Marisa Hess Primary Care Provider [phone] Encounter Details Date Type Department Care Team (Latest Contact Info) Description 12/26/2024 Travel Social History Tobacco Use Types Packs/Day Years [...] Wish to be (Past 1 Month) Yes 3:36 PM EDT Jerrica Duarte MA 2. [...] 12/26/2024 3:36 PM EDT Charles MA * [facility]ova Suicide Severity Rating Scale (Screener/Recent Self-Report) Question [...] way Nearly every day 12/26/2024 3:36 PM MARCT Jerrica Duarte MA Patient Health Questionnaire-9 Score [...] documented as of this encounter Care Teams Agency Sales Development Associate Relationship Specialty Start Date End Date Marisa [place] [address] PCP - General Family Medicine 06/16/19 documented as of this encounter
--- OUTSIDE RECORDS SUMMARY | 2025-02-04 12:48 | XMS_ITS | Encounter Summary ---
Author Organization [facility] Address [address] [place] [address] Care Team Providers Care Filler Room Attendant Name Role Phone Marisa Hess DO Primary Care Provider [phone] Encounter Details Date Type Department Care Team (Late st Contact Info) Description 04/27/2020 Telephone [facility] Central Scheduling [address] [place] [address] Marisa Hess DO [address] [place] [address] Social History Tobacco Use Types Packs/Day Years [...] documented as of this encounter Care Teams Filler Room Attendant Relationship Specialty Start Date End Date Marisa Hess DO [address] [place] [address] PCP - General Family Medicine 06/16/19 documented as of this encounter
--- OUTSIDE RECORDS SUMMARY | 2025-02-04 12:48 | XMS_ITS | Clinical Summary ---
[facility] [address] [place] [address] Care Team Providers Care Chronic Condition Nurse Name Role Phone JimenaMarisa cevallos Brie THAYER Primary Care Provider [phone] Allergies Active Allergy Reactions Criticality Noted Date Comments Lamotrigine Other (See Comments) High 12/23/2013 Ehsan Last Syndrome Medications * This document contains information received from the source organization and may not represent a complete record from that organization. albuterol (PROVENTIL) (2.5 MG/3ML) 0.083% nebulizer solution Take 2.5 mg by nebulization 4 (Four) Times a Day As Needed for Wheezing. 120 each 5 3 Active polyethylene glycol (MIRALAX) 17 GM/SCOOP powder Take by mouth Daily. 4 Active promethazine (PHENERGAN) 25 MG tabletIndication s:Nausea Take 0.5-1 tablets by mouth Every 6 (Six) Hours As Needed for Nausea or Vomiting. 10 tablet 4 Active metoprolol tartrate (LOPRESSOR) 50 MG tabletIndication s:Essential hypertension Take 1 tablet by mouth 2 (Two) Times a Day. 180 tablet 1 4 Active tiZANidine (ZANAFLEX) 4 MG tabletIndication s:Muscle spasm Take 1 tablet by mouth Every 8 (Eight) Hours As Needed for Muscle Spasms. 30 tablet 3 5 Active albuterol sulfate HFA 108 (90 Base) MCG/ACT inhaler INHALE 2 PUFFS BY MOUTH EVERY 4 HOURS NEEDED FOR WHEEZING 18 g 5 5 Active Fluticasone-Umec lidin-Vilant (Trelegy Ellipta) 100-62.5-25 MCG/ACT inhaler INHALE 1 PUFF BY MOUTH DAILY 60 each 3 5 Active buprenorphine-na loxone (SUBOXONE) 8-2 MG per SL tablet dissolve 2 tablets under the tongue once a day 5 Active PARoxetine (Paxil) 10 MG tabletIndication s:MDD (major depressive disorder), recurrent, in partial remission,Genera lized anxiety disorder Take 1 tablet by mouth Every Morning. 30 tablet 1 5 Active Cariprazine HCl (Vraylar) 1.5 MG capsule capsuleIndicatio ns:MDD (major depressive disorder), recurrent, in partial remission Take 1 capsule by mouth Daily. 30 capsule 5 5 Active Hospital, Clinic, or Other Facility Administered Medication Ordered Dose Route Frequency Start Date End Date Status cyanocobalamin injection 1,000 mcgIndications:Vitamin B 12 deficiency 1000 mcg IM Every 28 Days 01/15/2024 Active Active Problems Problem Noted Date Diagnosed Date Nocturnal hypoxemia 03/31/2023 Chest pain 03/30/2023 Esophageal dysphagia 03/30/2023 Overview (03/31/2023): Added automatically from request for surgery [id number] Moderate COPD (chronic obstructive pulmonary dis ease) 02/20/2023 Elevated LFTs 11/25/2020 Hepatitis C antibody test positive 11/25/2020 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 [address] [place] [address] Tracey Hinds APRN Generalized anxiety disorder (Primary Dx); MDD (major depressive disorder), recurrent, in partial remission 12/26/2024 Travel 11/14/[address] [facility] [address] [place] [address] Taina Nuno APRN Albuterol from Last 3 Months Immunizations Immunization Administration Dates Next Due Fluzone (or Fluarix & Flulaval for VFC) >6mos Hepatitis A 03/09/2018 Pneumococcal Conjugate 20-Valent (PCV20) 024 Pneumococcal Polysaccharide (PPSV23) 07/11/2019 Td (TDVAX) 09/26/1996 Tdap 02/26/2015,10/16/2006 Family History Medical History Relation Name Comments Anxiety disorder Father Ramin Hector Arthritis Father Ramin [place] Asthma Father Ramin Hector Cancer Father Ramin Hector Hyperlipidemia Father Ramin [place] Hypertension Father Ramin [place] Mental illness Father Ramin [place] Anxiety disorder Mother Jory Hector Arthritis Mother Jory [place] Hearing loss Mother Jory Hector Mental illness Mother Jory [place] OCD Mother Jory Hector Osteoporosis Mother Jory [place] Depression Sister 1 MB Hypertension Sister 1 MB Mental illness Sister 1 MB Migraines Sister 1 MB Hypertension Sister 2 Andria Nadia Bridget Bipolar disorder Sister 3 Zayda Loyaa Also clepto maniac OCD Sister 3 Zayda Rankin Breast cancer Neg Hx Colon cancer Neg Hx Ovarian cancer Neg Hx Uterine cancer Neg Hx Relation Name Status Comments Father Ramin Hector Mother Jory Hector Alive Sister 1 MB Alive Sister 2 Andriaghulam Zuniga Bridget Sister 3 Zayda Rankin Alive Social History Tobacco Use Types Packs/Day Years Used Date Smoking Tobacco: Every Day Cigarettes 1 32.2 Started: 07/16/1998 Smokeless Tobacco: Never Tobacco Cessation:Ready to Q uit: Not Asked; Counseling Given: Not Answered Alcohol Use Standard Drinks/Week Comments Not Currently [...] on file Sexual Orientation Not on file Last Filed Vital Signs Vital Sign Reading [...] Mass Index 25.66 12/26/2024 3:27 PM EDT Plan of Treatment Health Maintenance Due Date Last Done Comments Hepatitis B (1 of 3 - 19+ 3-dose series) 1989 COLOGUARD 10/26/2015 COLON CANCER SCREENING 5 YEAR SIGMOIDOSCOPY 10/26/2015 CT COLONOGRAPHY 10/26/2015 FECAL OCCULT BLOOD TEST 10/26/2015 FIT Testing (1 year) 10/26/2015 ANNUAL PHYSICAL 04/21/2019 ZOSTER VACCINE (1 of 2) 2020 Annual Gynecologic Pelvic and Breast Exam 07/27/2023 07/26/2022 LUNG CANCER SCREENING 03/30/2024 03/30/2023, 020 COLONOSCOPY 07/16/2024 07/16/2014 (Patient-Reported (Performed Externally)) COLORECTAL CANCER SCREENING 07/16/2024 COVID-19 Vaccine ( season) 2025 Postponed from 03/16/2024 (Product Unavailable) TDAP/TD VACCINES (4 - Td or Tdap) 02/26/2025 02/26/2015, 10/16/2006, 09/26/1996 INFLUENZA VACCINE 04/15/2025 04/27/2023, (Declined) PAP SMEAR 07/26/2025 07/26/2022, 01/06/2021 MAMMOGRAM 12/19/2025 12/20/2023 HEPATITIS C SCREENING Completed 05/10/2020 , 04/22/2020, 04/22/2020, Additional history exists Pneumococcal Vaccine 50+ Completed 02/18/2024, 06/16 Procedures Procedure Name Priority Date/Time Associated Diagnosis Comments MAMMO SCREENING DIGITAL TOMOSYNTHESIS BILATERAL W CAD Routine 12/20/2023 2:29 PM EDT Encounter for screening mammogram for malignant neoplasm of breast CT ANGIOGRAM CHEST STAT 03/30/2023 2: 46 PM EDT LIQUID-BASED PAP SMEAR, [facility] ([facility]) Routine 07/26/2022 1:41 PM EST Pap test, as part of routine gynecological examination HEPATITIS C RNA, QUANTITATIVE, PCR (GRAPH) Routine 04/22/2020 10:10 AM EDT Hep C w/o coma, chronic Liver enzyme elevation from Last 3 Months or Most Recently Relevant to Health Maintenance Results * (ABNORMAL) Mammo Screening Digital Tomosynthesis Bilateral With CAD (12/20/2023 2:29 PM EDT) Anatomical Region Laterality Modality Breast N/A Mammography 01/01/2024 10:4 7 AM EDT Impressions 01/01/2024 11:05 AM EDT 1. Hyperdense 1.6 cm right axillary lymph node that may represent summation of adjacent lymph nodes based on tomosynthesis imaging. No suspicious findings are noted within the breast tissue. 2. Left superior asymmetry. RECOMMENDATION: Bilateral MLO focal compression and left ML imaging with tomosynthesis. Focused ultrasound imaging of the right axilla may also be performed for further evaluation. BI-RADS CATEGORY 0, INCOMPLETE: NEED ADDITIONAL IMAGING EVALUATION. The patient will be contacted by our office to schedule an appointment for the additional studies. A letter, in lay terminology, with the results of this exam will be mailed to the patient. CAD was utilized. The standard false-negative rate of mammography is between 10% and 25%. Complex patterns or increased breast density will markedly elevate the false-negative rate of mammography. PHYSICIAN ORDER DIAGNOSTIC MAMMOGRAM AND/OR ULTRASOUND. DIAGNOSIS: ABNORMAL SCREENING MAMMOGRAM This report was finalized on 01/01/2024 11:[address] Halina Carlson MD. Narrative 01/01/2024 11:05 AM EDT BILATERAL SCREENING MAMMOGRAM WITH TOMOSYNTHESIS: HISTORY: 53-year-old patient with no personal or family history of breast cancer and no new breast complaints. No recent upper extremity vaccinations were reported. TECHNIQUE: Bilateral CC and MLO low dose, full field digital mammographic images were obtained with tomosynthesis. COMPARISON: Outside mammograms from [place], [place] dated 05/23/2013 and 03/26/2012. Chest CT dated 03/30/2023. FINDINGS: The breast tissue is heterogeneously dense, which may obscure small masses. RIGHT BREAST There is a 1.6 cm hyperdense axillary lymph node. This finding may represent overlapping lymph nodes based on tomosynthesis imaging. Focused ultrasound imaging is recommended for further evaluation of cortical thickness. Right mammographic imaging is otherwise unremarkable. No suspicious masses, areas of architectural distortion, or worrisome calcifications are noted within the breast tissue. LEFT BREAST There is an asymmetry in the mid aspect of the superior breast that may represent summation of fibroglandular tissue. Additional imaging is recommended. No suspicious calcifications or areas of architectural distortion are noted. us Marisa Hess DO IM MAMMOGRAPHY ORDERABLES Final Result * CT Angiogram Chest (03/30/2023 2:46 PM EDT) Anatomical Region Laterality Modality Chest, Vascular N/A Computed Tomogra phy 03/30/2023 2:54 PM EDT Impressions 03/30/2023 2:57 PM EDT No acute process. Electronically Signed: Violeta Marcelino MD 03/30/2023 2:57 PM EDT Workstation ID: [id number] Narrative 03/30/2023 2:[address] ANGIOGRAM CHEST Date of Exam: 03/30/2023 2:32 PM EDT Indication: acute chest pain s/p heart cath, eval for complication. Comparison: None available. Technique: CTA of the chest was performed after the uneventful intravenous administration of Isovue-300. Reconstructed coronal and sagittal images were also obtained. In addition, a 3-D volume rendered image was created for interpretation. Automated exposure control and iterative reconstruction methods were used. Findings: There are no filling defects suspicious for pulmonary embolism. Aortic arch is moderately calcified. The thoracic aorta is normal in size and demonstrates no dissection. There are calcified mediastinal nodes. There are no hilar masses. The heart size is normal. There are no pleural effusions. Lung morel are clear of acute infiltrates. There is a calcified granuloma in the right upper lobe. There are no noncalcified nodules or masses. Procedure Note Violeta Marcelino MD - 03/30/2023 CT ANGIOGRAM CHEST Date of Exam: 03/30/2023 2:32 PM EDT Indication: acute chest pain s/p heart cath, eval for complication. Comparison: None available. Technique: CTA of the chest was performed after the uneventful intravenousadministration of Isovue-300. Reconstructed coronal and sagittal imageswere also obtained. In addition, a 3-D volume rendered image was createdfor interpretation. Automated exposure control and iterative reconstruction methods were used. Findings: There are no filling defects suspicious for pulmonary embolism. Aorticarch is moderately calcified. The thoracic aorta is normal in size anddemonstrates no dissection. There are calcified mediastinal nodes. Thereare no hilar masses. The heart size is normal. There are no pleural effusions. Lung morel are clear of acuteinfiltrates. There is a calcified granuloma in the right upper lobe. Thereare no noncalcified nodules or masses. IMPRESSION: No acute process. Electronically Signed: Violeta Marcelino MD 03/30/2023 2:57 PM EDT Workstation ID: [id number] Fabio Sheriff MD IMG CT ORDERABLES Final Resu lt * LIQUID-BASED PAP SMEAR, [facility]) (07/26/2022 1:41 PM EST) Reference Lab Report [facility] [address] [place] [address] or [phone] Guero Gutierrez M.D., [employer] PATIENT NAME LABORATORY NO. KANCHAN GUTIERREZ. [id number] AGE SEX SSN CLIENT REF # [id number] 51 1970 F [id number] [address] REQUESTING Edward. [place] [address] ZULEYMA MERCADO DATE COLLECTED DATE RECEIVED DATE REPORTED 07/26/2022 07/26/2022 07/28/2022 ThinPrep Pap with Cytyc Imaging DIAGNOSIS: Negative for intraepithelial lesion or malignancy Multiple factors can influence accuracy of Pap tests; therefore, screening at regular intervals is necessary for early cancer detection. SPECIMEN ADEQUACY: SATISFACTORY FOR EVALUATION Transformation zone is present. SOURCE OF SPECIMEN: CERVICAL/ENDOCERV ICAL SLIDES: 1 CLINICAL HISTORY: Pap test, as part of routine gynecological examination HPV HR-HPV POOL: Negative The Aptima HPV assay is an in vitro nucleic acid amplification test for the qualitative detection of E6/E7 viral messenger RNA from 14 high risk types of HPV in cervical specimens. The high risk HPV types detected include: 16, 18, 31, 33, 35, 39, 45, 51, 52, 56, 58, 59, 66, 68 C++ PROFESSOR: BRITNI BURNETT (ASCP) CPT CODES: 62470, 46452 07/28/2022 9:38 AM EST [facility] ThinPrep Vial Cervix uteri structure / Unknown Collection / Unknown 07/26/2022 1:41 PM EST 07/26/2022 1:41 PM EST Zuleyma Mercado MD PATHOLOGY/CYTOLOGY ORDERABLES Fi nal Result [facility]
[address] [place] [address], * Hepatitis C RNA, Quantitative, PCR (graph) (04/22/2020 10:10 AM EDT) Hepatitis C Quantitation HCV Not Detected IU/mL 04/25/2020 12:07 PM EDT [facility] Test Information Comment 04/25/20 12:07 PM EDT [facility] Comment:The quantitative ran ge of this assay is 15 IU/mL to 100 million IU/mL. Blood Venipuncture / Unknown 04/22/2020 10:10 AM EDT 04/22/2020 10:10 AM EDT Narrative [facility] - 04/25/2020 12:07 PM EDT Performed at: [address] [place] [id number] Business Support Specialist: Maninder Juares MD, Phone: [phone] Praveen Wong MD LAB BLOOD ORDERABLES Final Result [facility] [address] [place] [address], from Last 3 Months or Most Recently Relevant to Health Maintenance Insurance [facility] MEDICAID Advance Directives * CPR (Attempt to Resuscitate) (Latest Code Status on File) Date Activated Date Inactivated Comments 03/30/2023 11:17 PM 04/01/2023 3:10 PM Question Answer Comments Code Status (Patient has no pulse and is not breathing): CPR (Attempt to Resuscitate) Medical Interventions (Patie nt has pulse or is breathing): Full Support Level Of Support Discussed With: Patient Care Teams Chronic Condition Nurse Relationship Specialty Start Date End Date Marisa Hess DO [address] [facility] [place] [address] PCP - General Family Medicine 06/16/19
[2025-02-04 13:01] VITALS: BP 173/99; PULSE 52; O2SAT 96
--- NOTE | 2025-02-04 13:15 | ED_ITS ---
<Statement entered by Narciso Cruz MD - 02/04/25 16:46> I was consulted by the MERARI, and we discussed the complexity of problems being addressed. I approved the treatment and management plan for this patient's care in the emergency department, thus performing a substantial portion of the medical decision making. Narciso Cruz MD Discharge Plan Disposition Patient Disposition: Home, Self-Care Prescriptions Prescriptions: New buprenorphine-naloxone [Suboxone] 8-2 mg film 1 film buccal DAILY Qty: 2 0RF No Action metoprolol succinate 50 mg tablet extended release 24 hr 50 mg PO DAILY Qty: 90 0RF Vraylar 3 mg capsule 3 mg PO DAILY Qty: 90 3RF sertraline 200 mg capsule 200 mg PO DAILY Qty: 90 2RF lidocaine 4 % adhesive patch,medicated 1 patch topical DAILY PRN (Reason: pain) Qty: 10 0RF Rx Instructions: apply patch for 12 hours then remove for 12 hours methadone 10 mg/mL concentrate 85 mg PO DAILY albuterol sulfate 2.5 mg /3 mL (0.083 %) solution for nebulization 2.5 mg inhalation Q6H Qty: 75 0RF guaifenesin 600 mg tablet extended release 12hr 600 mg PO Q12H PRN (Reason: cough) Qty: 20 0RF metronidazole 500 mg tablet 500 mg PO BID 7 Days Qty: 14 0RF Referrals Follow up/Referrals: Marisa Hess MD [Primary Care Provider, Medical] - See instructions Activity Restrictions/Add. Instructions Additional Instructions/Restrictions: Follow with your Suboxone clinic Clinical Impressions Clinical Impression: Withdrawal complaint Instructions Patient Instructions: Nausea and Vomiting-Adult Print Language Print Language: Estonian Discharge ED Provider: Narciso Cruz General Adult HPI General Chief complaint: Nausea/Vomiting/Diarrhea Stated complaint: suboxone withdrawal Time Seen by Provider: 02/04/25 13:00 Mode of Arrival: Ambulatory Source of Information: Patient Description of Symptoms (Recalled from ER Triage Doc. by RN): Pt presents for evaluation of withdrawal from suboxone. Pt states she takes 2 4mg strips per day, pt states she goes to [facility] for the managment of her suboxone. Pt states she lost her insurance and has been having to space out her doses to make it last. Pt states she occassionaly uses cocaine and last used on sunday History of Present Illness HPI narrative: 54-year-old female presents to the ED today for concern plaint of withdrawing from Suboxone. She takes 8 mg/day. She states that she lost her insurance and has been having to space out her last prescription of Suboxone she got on 01/14/25. She ran out and now for the past 3 or 4 days she has been feeling bad, having chills and nausea but no diarrhea. She does have some abdominal pain. She also tells me she has a yeast infection. Patient just tells me she started feeling worse last night with being hot and cold and clammy. Related Data Home Medications ?Medication ?Instructions ?Recorded ?Confirmed methadone 10 mg/mL oral concentrate 85 mg PO DAILY 01/15/25 Previous Rx's ?Medication ?Instructions ?Recorded cariprazine 3 mg capsule (Vraylar) 3 mg PO DAILY #90 c aps 10/01/23 metoprolol succinate 50 mg 50 mg PO DAILY hypertension #90 10/01/23 tablet,extended release 24 hr tabs sertraline 200 mg capsule 200 mg PO DAILY #90 caps albuterol sulfate 2.5 mg/3 mL 2.5 mg (3 mL) inhalation Q6H #75 mL 11/24/24 (0.083 %) solution for nebulization guaifenesin 600 mg tablet, 600 mg PO Q12H PRN cough #2 0 tabs 11/24/24 extended release 12 hr lidocaine 4 % topical patch 1 patch topical DAILY PRN pain #10 01/08/25 ea metronidazole 500 mg tablet 500 mg PO BID 7 days #14 t abs 01/17/25 buprenorphine 8 mg-naloxone 2 mg 1 film buccal DAILY # 2 ea 02/04/25 sublingual film (Suboxone) Allergies Allergy/AdvReac Type Severity Reaction Status Date / Time lamotrigine (From LAMICTAL) Allergy Unknown Verified 01/15/25 08:32 [facility] Disclaimer: The information contained in this section may have been updated after the patient was seen, as this information can be updated by other users. Medical History Rib pain Rhabdomyolysis Cough Sinusitis Cervical vertebral fusion Hypertension Degenerative disc disease Anxiety Depression Surgical History History of tubal ligation History of section Family History Father Coronary artery disease Social History Smoking Status: Current every day smoker years smoked: 35 quit status: not considering quitting alcohol intake: former substance use type: former substance user current occupational status: employed Travel in the last 8 weeks?: None Have you lived/traveled outside US in past 30 days?: No Contact w/someone who lives/traveled outside US past 30 days?: No Exposure to someone with infectious disease in past 14 days?: No Do you have a fever (greater than 100.4 F or 38 C)?: No Have you tested positive for COVID-19?: No Exposed to someone with COVID-19 in past 14 days?: No Do you have a sore throat?: No Do you have a cough?: No Do you have any weakness?: No Do you have any diarrhea?: No Are you experiencing any unusual bleeding?: No Do you have any muscle aches/pain?: No Do you have any abdominal pain?: No Are you experiencing loss of taste or smell?: No Other Medical History Have you received the Pneumonia Vaccine: Yes ROS Obtained: Yes Systems reviewed as appropriate & no additional complaints except as documented Constitutional Constitutional: Reports as per HPI Physical Exam General General appearance: alert and anxious Head Head exam: normocephalic Eye Eye exam: Present PERRL and EOMI ENT ENT exam: Present normal oropharynx and mucous membranes moist Neck Neck exam: Present full ROM and trachea midline Chest Chest inspection: Present symmetric chest wall rise Respiratory Respiratory exam: Present normal lung sounds bilaterally Cardiovascular Cardiovascular exam: Present regular rate, +S1 and +S2 Abdominal Exam Abdominal exam: Present soft and normal bowel sounds Extremities Exam Extremities exam: Present normal inspection Neurological Exam Neurological exam: Present alert and oriented X3 Skin Skin exam: Present warm and dry Medical Decision Making Medical Records Screening: Per USPSTF and CDC recommendations, given the prevalence of disease in our region, it is our hospital?s policy to screen for HIV and viral Hepatitis for all patients aged 18 and over and those with ongoing risk factors. Hira Inquiry Pt receiving controlled substance: Yes Hira was queried for this patient: No Risks and benefits of using a controlled substance: were discussed with pt by me Vital Signs: 07/23/25 12:31 02/04/25 13:01 02/04/25 13:31 Temperature 98.3 F Temperature Source Temporal Artery Scan Pulse Rate 52 L 57 L Pulse Rate [Right] 60 Respiratory Rate 18 Blood Pressure 173/99 H 190/124 H Blood Pressure [Right Arm] 180/109 H Blood Pressure Mean 119 Blood Pressure Mean [Right Arm] 132 Blood Pressure Source Blood Pressure Source [Right Arm] Automatic Cuff Blood Pressure Position Blood Pressure Position [Right Arm] Sitting 02 Sat by Pulse Oximetry 98 96 100 Oxygen Delivery Method Room Air 02/04/25 13:42 02/04/25 14:51 02/04/25 15:44 Temperature 98.1 F Temperature Source Oral Pulse Rate 55 L 85 Pulse Rate [Right] Respiratory Rate 15 Blood Pressure 171/109 H 160/93 H Blood Pressure [Right Arm] Blood Pressure Mean 129 Blood Pressure Mean [Right Arm] Blood Pressure Source Automatic Cuff Blood Pressure Source [Right Arm] Blood Pressure Position Sitting Blood Pressure Position [Right Arm] 02 Sat by Pulse Oximetry 100 97 Oxygen Delivery Method Room Air Room Air Orders (Tests/Meds): ED MEDICATIONS Generic Name Dose Route Start Last Admin Trade Name Freq PRN Reason Stop Dose Admin Acetaminophen 1,000 mg 02/04/25 14:41 02/04/25 14:51 Acetaminophen 500mg Tab PO 02/04/25 14:42 1,000 mg ONCE ONE Administration Buprenorphine/Naloxone 1 each 02/04/25 14:13 02/04/25 14:51 Buprenorphine/Naloxone 8mg/2mg Odt SL 02/04/25 14:14 1 each ONCE ONE Administration Sodium Chloride 1,000 mls @ 999 mls/hr 02/04/25 13:06 02/04/25 14:58 Sod Chlor 0.9% 1000ml Bag IV 02/04/25 14:06 Not Given .Q1H1M ONE Ketorolac Tromethamine 30 mg 02/04/25 14:41 02/04/25 14:51 Ketorolac 30mg/Ml Vial IM 02/04/25 14:42 30 mg ONCE ONE Administration Ondansetron HCl 4 mg 02/04/25 14:41 02/04/25 14:52 Ondansetron 4mg Odt SL 02/04/25 14:42 4 mg ONCE ONE Administration Sodium Chloride 8 ml 02/04/25 13:06 Sodium Chloride 0.9% 10ml Vial IV 03/06/25 13:05 NEEDED PRN dilute pepcid Discontinued Medications Generic Name Dose Route Start Last Admin Trade Name Aaron PRN Reason Stop Dose Admin Acetaminophen 1,000 mg 02/04/25 13:06 02/04/25 14:58 Acetaminophen 1,000mg/100ml Vial IV 02/04/25 13:07 Not Given ONCE ONE Famotidine 20 mg 02/04/25 13:06 02/04/25 14:59 Famotidine 20mg/2ml Vial IV 02/04/25 13:07 Not Given ONCE ONE Fluconazole 200 mg 02/04/25 13:09 02/04/25 15:09 Fluconazole 200mg Tablet PO 02/04/25 13:10 200 mg ONCE ONE Administration Ketorolac Tromethamine 30 mg 02/04/25 13:06 02/04/25 14:59 Ketorolac 30mg/Ml Vial IV 02/04/25 13:07 Not Given ONCE ONE Ondansetron HCl 4 mg 02/04/25 13:06 02/04/25 15:00 Ondansetron 4mg/2ml Vial IV 02/04/25 13:07 Not Given ONCE ONE ORDERS Category Date Time Status CBC [Complete Blood Count Auto Diff] Stat Lab 02/04/25 13:07 Ordered Comprehensive Metabolic Panel Stat Lab 02/04/25 13:07 Ordered Lipase Stat Lab 02/04/25 13:07 Ordered Magnesium Stat Lab 02/04/25 13:07 Ordered Medical Decision Narrative: patient is a 34-year-old female presenting to the emergency department for evaluation of nausea abdominal pain and withdrawal from Suboxone. Patient is hemodynamically stable and nontoxic-appearing upon arrival, afebrile. Differential diagnosis includes withdrawal, viral illness. Workup will be conducted with hematologic labs, specific imaging. Initial inventions include crystalloid bolus, analgesics. Initial plan was to get labs since she was vomiting however they were unable to get labs from her because she was a hard stick. Dr. Cruz went in and evaluated patient and decided to just give medications by mouth and then see how patient was feeling. Patient is feeling much improved at this time and she is ready to go. He wrote her a prescription for Suboxone for 2 days. Gaby our substance abuse counselor talked to her as well. Patient is safe for discharge home. Critical Care Critical Care Time Critical Care Time: No
[2025-02-04 13:31] VITALS: BP 190/124; PULSE 57; O2SAT 100
[2025-02-04 13:42] VITALS: O2SAT 100
--- NOTE | 2025-02-04 13:56 | ECG_ITS ---
APPROVED REPORT Exam: Resting ECG HR:54 bpm ECG Measurements Heart Rate 54 AXES NV 158 P -3 QRSd 90 QRS 1 QT 451 T 27 QTc 437 Conclusion SINUS BRADYCARDIA POSSIBLE RIGHT VENTRICULAR CONDUCTION DELAY [RSR (QR) IN V1/V2] BORDERLINE ECG UNCONFIRMED REPORT Electronically signed by : Narciso Cruz, 02/04/2025 16:59:33
[2025-02-04 14:51] VITALS: BP 171/109; PULSE 55; O2SAT 97
[2025-02-04] MEDS: KETOROLAC 30MG/ML VIAL 30 MG IM (14:51)
[2025-02-04] MEDS: BUPRENORPHINE/NALOXONE 8MG/2MG ODT 1 EACH SL (14:51)
[2025-02-04] MEDS: ACETAMINOPHEN 500MG TAB 1000 MG PO (14:51)
[2025-02-04] MEDS: ONDANSETRON 4MG ODT 4 MG SL (14:52)
--- NOTE | 2025-02-04 15:01 | PC.NURSE ---
Multiple nurses and housefellow attempted to get IV access on pt with no success. Per MD changed pt's medications to PO.
[2025-02-04] MEDS: FLUCONAZOLE 200MG TABLET 200 MG PO (15:09)
[2025-02-04 15:44] VITALS: BP 160/93; PULSE 85; RESP 15; TEMP 36.7; O2SAT 99
--- NOTE | 2025-02-04 18:18 | PEERSUPPORT ---
Peer Support Note Patient Information Patient Information: DOS: 02/04/2025 ? ED Ps Consult ? Drug(s) of Choice: Opiates, STU ? Last Use:01/30/2025 ? UDS Positive: ? Use Hx: Methadone clinic, then transitioned to suboxone almost two years ago, struggled with cocaine for the past year and a half.? ? Current Use: Cocaine ? ? Previous MAT/MOUD: [facility]- Methadone MAT ? Current MAT/MOUD: [facility]- Buprenorphine 8mg/2mg naloxone 2 films per day ?Pt insurance not active since December, last prescription was on January 02 for 14 days of medication. Desire for MAT/MOUD: Follow up appointment with [facility] on 02/13/2025 @ 2pm ? Support System: -Family -[facility] Team ? Legal Issues: None ? Potential Barriers: -Withdrawal from suboxone -Insurance not active until 02/13/2025 -Depression ? ? Insurance: Not active until February 13, 2025 ? Harm reduction: -Connection to Bridge Peer support -Education on MICHAEL -Appointment/ [facility] -Awareness to support and medical care to stabilize -Treatment options available ? Motivation for Change: Pt is tearful when saying she feels terrible, she has made it this far with her suboxone rx from [facility] for 14 days on January 02 as her insurance was marked inactive and she is now awaiting on coverage to be active again on 02/13/2025. Pt is honest and forth coming with other under lying issues, she has been honest with [facility] and plans to address on her follow up appointment. ? Pt is understanding that the ED can only prescribe 2-3 days of suboxone, and aware that she can return to the ED if symptoms return. ? Pt is receptive, expressing gratitude for support and care shown. ? Plan of Action: Refrain from using drugs and/or alcohol Take medication properly Attend [facility] appt.- 02/13/2025 @ 2pm Use safe coping skills
== END 2025-02-04 16:06 | disposition home or self-care (01) ==
PROVIDERS: Emergency Provider Emergency Medicine; PCP Family Medicine
DX: R10.9 Unspecified abdominal pain (principal); F11.93 Opioid use, unspecified with withdrawal; I10 Essential (primary) hypertension; F17.200 Nicotine dependence, unspecified, uncomplicated
CPT/HCPCS: 93005; 96374; 99283; J0574; J1885; Q0162

== ENCOUNTER 2025-02-07 09:52 | Emergency (ER) | payer SELFPAY ==
--- OUTSIDE RECORDS SUMMARY | 2020-05-13 09:05 | XMS_ITS | Encounter Summary ---
[facility] Address [address] [place] [address] Care Team Providers Care Farmworker [employer] Name Role Phone Marisa Hess Brie THAYER Primary Care Provider [phone] Encounter Details Date Type Department Care Team (Late st Contact Info) Description 05/13/2020 9:05 AM EDT Hospital Encounter [facility] PUL[facility] CRITICAL CARE MEDICINE [address] [place] [phone] Social History Tobacco Use Types Packs/Day [...] 12/26/2024 3:36 PM EDT Charles MA * [place] Suicide Severity Rating Scale (Screener/Recent Self-Report) Question [...] documented as of this encounter Care Teams Farmworker [employer] Relationship Specialty Start Date End Date Marisa Hess DO [address] [place] [address] PCP - General Family Medicine 06/16/19 documented as of this encounter
--- OUTSIDE RECORDS SUMMARY | 2023-02-20 09:33 | XMS_ITS | Encounter Summary ---
[facility] Address [address] [place] [address] Care Team Providers Care Outside [employer] Name Role Phone JimenaMarisa cevallos Brie THAYER Primary Care Provider [phone] Encounter Details Date Type Department Care Team (Late st Contact Info) Description 02/20/2023 9:33 AM EDT Hospital Encounter [facility] PULMONARY & CRITICAL CARE MEDICINE [address] [place] [phone] Social History Tobacco Use Types Packs/Day [...] 12/26/2024 3:36 PM EDT Charles MA * [place] Suicide Severity Rating Scale (Screener/Recent Self-Report) Question [...] Comments XR CHEST PA AND LATERAL Routine 02/20/2023 9:36 AM EDT Shortness of breath documented in this encounter Results * XR Chest PA & Lateral (02/20/2023 9:36 AM EDT) Anatomical Region Laterality Modality Body, Chest N/A Radiographic [place] 02/20/2023 9:47 AM EDT Impressions 02/20/2023 9:47 AM EDT Impression: Unremarkable exam Electronically Signed: Manan Conway MD 02/20/2023 8:47 AM CDT Workstation ID: [id number] Narrative 02/20/2023 9:47 AM EDT XR CHEST PA AND LATERAL Date of Exam: 02/20/2023 8:36 AM CDT Indication: SOA Comparison: 03/27/2022 Findings: Cardiomediastinal silhouette appears normal. No airspace disease, pneumothorax, nor pleural effusion.No acute osseous abnormality identified. Procedure Note Manan Conway MD - 02/20/2023 XR CHEST PA AND LATERAL Date of Exam: 02/20/2023 8:36 AM CDT Indication: SOA Comparison: 03/27/2022 Findings: Cardiomediastinal silhouette appears normal. No airspace disease,pneumothorax, nor pleural effusion.No acute osseous abnormalityidentified. IMPRESSION: Impression: Unremarkable exam Electronically Signed: Manan Conway MD 02/20/2023 8:47 AM CDT Workstation ID: [id number] Taina Nuno APRN IMG DIAGNOSTIC IMAGING ORDER MARCELO Final Result documented in this encounter Visit Diagnoses Not on filedocumented in this encounter Additional Health Concerns Infection Onset Date Last Indicated Resolved Time COVID (rule out) 03/30/2023 03/30/2023 04/06/2023 9:08 PM EDT Assessment Noted Time PHQ-2 Depression Total Score: 1 04/24/20 22 10:53 AM EDT documented as of this encounter Care Teams Outside B2B Sales Relationship Specialty Start Date End Date Marisa Hess DO [address] [place] [address] PCP - General Family Medicine 06/16/19 documented as of this encounter
--- OUTSIDE RECORDS SUMMARY | 2024-02-18 09:19 | XMS_ITS | Encounter Summary ---
[facility] Address [address] [place] [address] Care Team Providers Care Reliability Engineer Name Role Phone JimenaMarisa cevallos Brie THAYER Primary Care Provider [phone] Encounter Details Date Type Department Care Team (Late st Contact Info) Description 02/18/2024 9:19 AM EDT Hospital Encounter [facility] PUL[facility] CRITICAL CARE MEDICINE [address] [place] [phone] Social History Tobacco Use Types Packs/Day [...] 12/26/2024 3:36 PM EDT Charles MA * [place] Suicide Severity Rating Scale (Screener/Recent Self-Report) Question [...] MD 02/18/2024 3:42 PM EDT Workstation ID: [id number] Narrative 02/18/2024 3:42 PM EDT XR CHEST [...] MD 02/18/2024 3:42 PM EDT Workstation ID: [id number] Taina Nuno APRN IMG DIAGNOSTIC IMAGING ORDER MARCELO Final Result documented in this encounter Visit Diagnoses Not on filedocumented in this encounter Additional Health Concerns Assessment Noted Time PHQ-2 Depression Total Score: 2 12/06/19 24 11:00 AM EDT documented as of this encounter Care Teams Reliability Engineer Relationship Specialty Start Date End Date Marisa Hess DO [address] [place] [address] PCP - General Family Medicine 06/16/19 documented as of this encounter
--- OUTSIDE RECORDS SUMMARY | 2024-12-26 15:30 | XMS_ITS | Encounter Summary ---
Author Organization [facility] Address [address] [place] [address] Care Team Providers Care Pbx Operator Name Role Phone JimenaMarisa cevallos Brie THAYER Primary Care Provider [phone] Reason for Visit * Reason Comments Depression Anxiety. Quit Methad one and started Suboxone yesterday and started getting sick today. She has not reached out to that provider/clinic due to her anxiety and depression being worse than ever. Encounter Details Date Type Department Care Team (Late st Contact Info) Description 12/26/2024 3:30 PM EDT Office Visit [facility] [address] [place] [address] Tracey Hinds, MASON TENDER RESTORATION LABOR [address] [place] [address] Generalized anxiety disorder (Primary Dx); [...] 12/26/2024 3:36 PM EDT Charles MA * [place] Suicide Severity Rating Scale (Screener/Recent Self-Report) Question [...] this encounter Progress Notes * Tracey Hinds, MASON TENDER RESTORATION LABOR - 12/26/2024 3:30 PM EDT Date: 12/26/2024 [...] her 80-year-old mother. She recently secured employment [employer] in [place], offering $19 per hour, and is motivated [...] by mouth Daily., Disp: 30 capsule,Rfl: 5 Jrwkpoaehjt-Nefalxkho-Mhqgiv (Trelegy Ellipta) 100-62.5-25 MCG/ACT inhaler, INHALE 1 [...] away from negative influences. Patient or patient insurance follow up representative verbalized consent for the use of Ambient Listening during the visit with Tracey Hinds APRN for chart documentation. 12/26/2024 16:59 EDT Follow Up: Return in about 4 weeks (around 01/23/2025) for Recheck. Tracey Hinds. GISELA [facility] documented in this encounter Plan of Treatment Not on file documented as of this encounter Visit Diagnoses Diagnosis Generalized anxiety disorder- Primary MDD (major depressive disorder), recurrent, in partial remission documented in this encounter Additional Health Concerns Assessment Noted Time PHQ-2 Depression Total Score: 2 12/06/19 24 11:00 AM EDT documented as of this encounter Care Teams Pbx Operator Relationship Specialty Start Date End Date Marisa Hess DO [address] [place] [address] PCP - General Family Medicine 06/16/19 documented as of this encounter
[2025-02-07 09:56] VITALS: BP 186/129; PULSE 58; O2SAT 99
--- OUTSIDE RECORDS SUMMARY | 2025-02-07 09:56 | XMS_ITS | Patient Health Record ---
Author Organization [facility] Address [address] [place] [address] Care Team Providers Care Teacher Of The Hearing Impaired Name Role Phone Adan Valiente II Unavailable [...] Risk Notes Problem Cervical spondylosis without myelopathy (562338973) Spondylosis without myelopathy or radiculopathy, cervical region (M47.812) Active confirmed Problem Lumbosacral spondylosis without myelopathy (72647925) Spondylosis without myelopathy or radiculopathy, lumbar region (M47.816) Active confirmed Problem Post-laminectom y syndrome (68619915) Postlaminectomy syndrome, not elsewhere classified (M96.1) Active confirmed Problem Carpal tunnel syndrome (36855672) Carpal tunnel syndrome, bilateral upper limbs (G56.03) Active confirmed Problem Lumbar spondylosis (382949948) lumbar spondylosis (M47.816) Active confirmed Problem Cervical spondylosis (782803867) cervical spondylosis (M47.812) Active confirmed Plan Of Treatment Pending Test Test Name Order Date Xray: Lumbar Spine 01/31/2023 Xray Cervical spine 01/31/2023 Urine Test LCMS Definitive 01/31/2023 Insurance Providers Payer Name Payer Address Payer Phone Subscriber Number Group Number Insured Name Patient Relationship to Insured Coverage Start Date Coverage End Date [employer] [address] [address] [place] [address] [id number] Chaparro Kanchan Self - patient is the insured 3 Medical (General) History Medical History History ICD Code asthma depression Surgical History Surgery Date(Month/Year) Cervical Fusion 2008 Cervical Fusion 2014
--- OUTSIDE RECORDS SUMMARY | 2025-02-07 09:57 | XMS_ITS | Encounter Summary ---
[facility] Address [address] [place] [address] Care Team Providers Care Ice Cream Freezer Assistant Name Role Phone Marisa Hess DO Primary Care Provider [phone] Reason for Visit * Reason Comments Med Refill Encounter Details Date Type Department Care Team (Late st Contact Info) Description 03/12/2020 Refill [facility] [address] [facility] [place] [address] Marisa Hess DO [address] [place] [address] Social History Tobacco Use Types [...] documented as of this encounter Care Teams Ice Cream Freezer Assistant Relationship Specialty Start Date End Date Marisa Hess DO [address] [place] [address] PCP - General Family Medicine 06/16/19 documented as of this encounter
--- OUTSIDE RECORDS SUMMARY | 2025-02-07 09:57 | XMS_ITS | Clinical Summary ---
[facility] Address [address] [place] [address] Care Team Providers Care Hydrometeorologist Name Role Phone JimenaMarisa cevallos Brie THAYER Primary Care Provider [phone] Allergies Active Allergy Reactions Criticality Noted Date [...] (03/31/2023): Added automatically from request for surgery [id number] Moderate COPD (chronic obstructive pulmonary dis ease) [...] 12/26/2024 3:30 PM EDT Office Visit [facility] [address] [place] [address] Tracey Hinds APRN Generalized anxiety disorder (Primary Dx); MDD (major depressive disorder), recurrent, in partial remission 12/26/2024 Travel 11/14/2024 Telephone [facility] [address] [place] [address] Taina Nuno APRN Albuterol from Last 3 Months Immunizations Immunization Administration Dates Next Due Fluzone (or Fluarix & Flulaval for VFC) >6mos Hepatitis A 03/09/2018 Pneumococcal Conjugate 20-Valent (PCV20) 024 Pneumococcal Polysaccharide (PPSV23) 07/11/2019 Td (TDVAX) 09/26/1996 Tdap 02/26/2015,10/16/2006 Family History Medical History Relation Name Comments Anxiety disorder Father Ramin Hector Arthritis Father Ramin [place] Asthma Father Ramin Hector Cancer Father Ramin Hector Hyperlipidemia Father Ramin [place] Hypertension Father Ramin [place] Mental illness Father Ramin [place] Anxiety disorder Mother Jory Hector Arthritis Mother Jory [place] Hearing loss Mother Jory Hector Mental illness Mother Jory [place] OCD Mother Jory Hector Osteoporosis Mother Jory [place] Depression Sister 1 MB Hypertension Sister 1 [...] Procedure Name Priority Date/Time Associated Diagnosis Comments SCANNED EKG 02/04/2025 MAMMO SCREENING DIGITAL TOMOSYNTHESIS BILATERAL W CAD [...] Recently Relevant to Health Maintenance Results * ECG Scan (02/04/2025) us Marisa Hess DO ECG ORDERABLES Final Resul t * (ABNORMAL) Mammo Screening Digital Tomosynthesis Bilateral [...] obtained with tomosynthesis. COMPARISON: Outside mammograms from [place], [place] dated 05/23/2013 and 03/26/2012. Chest CT [...] or areas of architectural distortion are noted. Marisa Hess DO IMG MAMMOGRAPHY ORDERABLES Final Result * CT Angiogram Chest (03/30/2023 2:46 PM EDT) Anatomical Region Laterality Modality Chest, Vascular N/A Computed Tomogra phy 03/30/2023 2:54 PM EDT Impressions 03/30/2023 2:57 PM EDT No acute process. Electronically Signed: Violeta Marcelino MD 03/30/2023 2:57 PM EDT Workstation ID: [id number] Narrative 03/30/2023 2:[address] ANGIOGRAM [...] MD 03/30/2023 2:57 PM EDT Workstation ID: [id number] us Fabio Sheriff MD IMG CT ORDERABLES Final Resu lt * LIQUID-BASED PAP SMEAR, [facility] (RE[facility]) (07/26/2022 1:41 PM EST) Pathologist [facility] Reference Lab Report [facility] [address] [place] [address] or [phone] Guero Gutierrez M.D., Thread Separator PATIENT NAME [facility] GUTIERREZ. [id number] AGE SEX SSN CLIENT REF # [facility] 51 1970 F [id number] [facility] [address] REQUESTING Lois [place] [address] ZULEYMA MERCADO DATE COLLECTED DATE RECEIVED DATE [...] 51, 52, 56, 58, 59, 66, 68 LIME KILN TENDER: BRITNI BURNETT (ASCP) CPT CODES: [id number], [id number] 07/28/2022 9:38 AM EST [facility] ThinPrep Vial Cervix uteri structure / Unknown Collection / Unknown 07/26/2022 1:41 PM EST 07/26/2022 1:41 PM EST Zuleyma Mercado MD PATHOLOGY/CYTOLOGY ORDERABLES Fi nal Result [facility]
[address] [place] [address], [place] [phone] * Hepatitis C RNA, Quantitative, PCR (graph) [...] - 04/25/2020 12:07 PM EDT Performed at: [address] [place] [address] [id number] Bobbin Painter: Maninder Juares MD, Phone: [phone] Praveen Wong MD LAB BLOOD ORDERABLES Final Result [facility] [address] [place] [address], [place] [phone] from Last 3 Months or Most Recently Relevant to Health Maintenance Insurance [facility] MEDICAID Advance Directives * CPR (Attempt to Resuscitate) (Latest Code Status on File) Date Activated Date Inactivated Comments 03/30/2023 11:17 PM 04/01/2023 3:10 PM Question Answer Comments Code Status (Patient has no pulse and is not breathing): CPR (Attempt to Resuscitate) Medical Interventions (Patie nt has pulse or is breathing): Full Support Level Of Support Discussed With: Patient Care Teams Hydrometeorologist Relationship Specialty Start Date End Date Marisa Hess DO [address] [place] [address] PCP - General Family Medicine 06/16/19
--- OUTSIDE RECORDS SUMMARY | 2025-02-07 09:57 | XMS_ITS | Encounter Summary ---
Author Organization [facility] Address [address] [place] [address] Care Team Providers Care Chief Wharfinger Name Role Phone Marisa Hess DO Primary Care Provider [phone] [phone] Encounter Details Date Type Department Care Team (Late st Contact Info) Description 04/27/2020 Telephone [facility] PATIENT [facility] Central Scheduling [address] [place] [address] Marisa Hess DO [address] [place] [address] Social History Tobacco Use Types Packs/Day Years [...] documented as of this encounter Care Teams Chief Wharfinger Relationship Specialty Start Date End Date Marisa Hess DO [address] [place] [place] [address] PCP - General Family Medicine 06/16/19 documented as of this encounter
--- OUTSIDE RECORDS SUMMARY | 2025-02-07 09:57 | XMS_ITS | Encounter Summary ---
[facility] Address [address] [place] [address] Care Team Providers Care Magento Web Developer Name Role Phone Marisa Hess Primary Care Provider [phone] Encounter Details Date Type Department Care Team [...] 12/26/2024 3:36 PM EDT Charles MA * [place] Suicide Severity Rating Scale (Screener/Recent Self-Report) Question [...] documented as of this encounter Care Teams Magento Web Developer Relationship Specialty Start Date End Date Marisa [place] [address] PCP - General Family Medicine 06/16/19 documented as of this encounter
[2025-02-07 10:00] VITALS: BP 198/110; PULSE 53; O2SAT 100
[2025-02-07 10:01] VITALS: BP 198/110; PULSE 62; RESP 16; TEMP 36.6; O2SAT 100; BMI 24.0
--- NOTE | 2025-02-07 10:33 | ED_ITS ---
Discharge Plan Disposition Chief Complaint: Headache Prescriptions Prescriptions: New buprenorphine-naloxone [Suboxone] 8-2 mg film 2 film sublingual DAILY 3 Days Qty: 6 0RF Rx Instructions: place 1 strip/tab under (each) side of tongue No Action metoprolol succinate 50 mg tablet extended release 24 hr 50 mg PO DAILY Qty: 90 0RF Vraylar 3 mg capsule 3 mg PO DAILY Qty: 90 3RF sertraline 200 mg capsule 200 mg PO DAILY Qty: 90 2RF lidocaine 4 % adhesive patch,medicated 1 patch topical DAILY PRN (Reason: pain) Qty: 10 0RF Rx Instructions: apply patch for 12 hours then remove for 12 hours methadone 10 mg/mL concentrate 85 mg PO DAILY albuterol sulfate 2.5 mg /3 mL (0.083 %) solution for nebulization 2.5 mg inhalation Q6H Qty: 75 0RF guaifenesin 600 mg tablet extended release 12hr 600 mg PO Q12H PRN (Reason: cough) Qty: 20 0RF metronidazole 500 mg tablet 500 mg PO BID 7 Days Qty: 14 0RF buprenorphine-naloxone [Suboxone] 8-2 mg film 1 film buccal DAILY Qty: 2 0RF Referrals Follow up/Referrals: Marisa Hess MD [Primary Care Provider, Medical] - See instructions Activity Restrictions/Add. Instructions Additional Instructions/Restrictions: Your symptoms today are consistent with Suboxone withdrawal. Your hypertension is also secondary to that without any clinical signs or symptoms of any endorgan damage thus no emergent evaluation or treatment is needed for that. Please follow[facility]up with [facility] also given the fact that you had to come to the emergency department multiple times for this it is documented that chronic ma intenance therapy of Suboxone is an inappropriate use of the emergency department and we will not be prescribing this in the future so please make sure that you maintain an appropriate relationship with your Suboxone provider. You may return to the emergency department with significant symptoms that you are concerned about. Clinical Impressions Clinical Impression: Opioid withdrawal without complication, Hypertension Print Language Print Language: Welsh Discharge ED Provider: Zamzam Jackson General Adult HPI General Chief complaint: Headache Stated complaint: Soboxone Withdrawal Time Seen by Provider: 02/07/25 10:17 Mode of Arrival: Ambulatory Source of Information: Patient Description of Symptoms (Recalled from ER Triage Doc. by RN): Patient presents to ED for s/s of suboxone withdrawal. Patient reports she was placed on suboxone approx. 3 months ago, states she has a follow-up scheduled with her doctor and is having to spread out her doses. Reports chills, pain all over, nausea, headache, and HTN. History of Present Illness HPI narrative: Patient is a 54-year-old female presenting today with Suboxone withdrawal symptoms. States she has had chills pain all over headache and has had some hypertension. She has been without her Suboxone for a few days. Actually came here on Sunday for the exact same symptoms and was prescribed a few days of Suboxone. She has been taking 16 mg total she states that she has been prescribed this primarily from [email or web address] but had an lapse in insurance which should have emergency coverage on Sunday. Denies any other symptoms associated with endorgan damage from hypertension. Related Data Home Medications ?Medication ?Instructions ?Recorded ?Confirmed methadone 10 mg/mL oral concentrate 85 mg PO DAILY 01/15/25 Previous Rx's ?Medication ?Instructions ?Recorded cariprazine 3 mg capsule (Vraylar) 3 mg PO DAILY #90 c aps 10/01/23 metoprolol succinate 50 mg 50 mg PO DAILY hypertension #90 10/01/23 tablet,extended release 24 hr tabs sertraline 200 mg capsule 200 mg PO DAILY #90 caps albuterol sulfate 2.5 mg/3 mL 2.5 mg (3 mL) inhalation Q6H #75 mL 11/24/24 (0.083 %) solution for nebulization guaifenesin 600 mg tablet, 600 mg PO Q12H PRN cough #2 0 tabs 11/24/24 extended release 12 hr lidocaine 4 % topical patch 1 patch topical DAILY PRN pain #10 01/08/25 ea metronidazole 500 mg tablet 500 mg PO BID 7 days #14 t abs 01/17/25 buprenorphine 8 mg-naloxone 2 mg 1 film buccal DAILY # 2 ea 02/04/25 sublingual film (Suboxone) buprenorphine 8 mg-naloxone 2 mg 2 film sublingual SAVANNAH LY 3 days #6 02/07/25 sublingual film (Suboxone) ea Allergies Allergy/AdvReac Type Severity Reaction Status Date / Time lamotrigine (From [facility]) Allergy Unknown Verified 01/15/25 08:32 PFSH [facility] [place] Disclaimer: The information contained in this section may have been updated after the patient was seen, as this information can be updated by other users. Medical History Rib pain Rhabdomyolysis Cough Sinusitis Cervical vertebral fusion Hypertension Degenerative disc disease Anxiety Depression Surgical History History of tubal ligation History of section Family History Father Coronary artery disease Social History Smoking Status: Current every day smoker years smoked: 35 quit status: not considering quitting alcohol intake: former substance use type: former substance user current occupational status: employed Travel in the last 8 weeks?: None Have you lived/traveled outside [place] in past 30 days?: No Contact w/someone who lives/traveled outside [place] past 30 days?: No Exposure to someone with infectious disease in past 14 days?: No Do you have a fever (greater than 100.4 F or 38 C)?: No Have you tested positive for COVID-19?: No Exposed to someone with COVID-19 in past 14 days?: No Do you have a sore throat?: No Do you have a cough?: No Do you have any weakness?: No Do you have any diarrhea?: No Are you experiencing any unusual bleeding?: No Do you have any muscle aches/pain?: No Do you have any abdominal pain?: No Are you experiencing loss of taste or smell?: No Other Medical History Have you received the Pneumonia Vaccine: Yes ROS Obtained: Yes All systems reviewed & no additional complaints except as documented Physical Exam General General appearance: alert and in no apparent distress Respiratory Respiratory exam: Present normal lung sounds bilaterally Cardiovascular Cardiovascular exam: Present regular rate Neurological Exam Neurological exam: Present alert and oriented X3 Medical Decision Making Medical Records Screening: Per USPSTF and CDC recommendations, given the prevalence of disease in our region, it is our hospital?s policy to screen for HIV and viral Hepatitis for all patients aged 18 and over and those with ongoing risk factors. Hira Inquiry Pt receiving controlled substance: No Vital Signs: 02/07/25 09:56 02/07/25 10:00 02/07/25 10:01 Temperature 98 F Temperature Source Oral Pulse Rate 58 L 53 L Pulse Rate [Right] 62 Respiratory Rate 16 Blood Pressure 186/129 H 198/110 H Blood Pressure [Right Arm] 198/110 H Blood Pressure Mean [Right Arm] 139 02 Sat by Pulse Oximetry 99 100 100 Oxygen Delivery Method Room Air Room Air 02/07/25 10:01 Temperature 98 F Temperature Source Pulse Rate 62 Pulse Rate [Right] Respiratory Rate 16 Blood Pressure 198/110 H Blood Pressure [Right Arm] Blood Pressure Mean [Right Arm] 02 Sat by Pulse Oximetry 100 Oxygen Delivery Method Orders (Tests/Meds): ED MEDICATIONS Discontinued Medications Generic Name Dose Route Start Last Admin Trade Name Freq PRN Reason Stop Dose Admin Buprenorphine/Naloxone 1 each 02/07/25 10:26 Buprenorphine/Naloxone 8mg/2mg Odt SL 02/07/25 10:27 ONCE ONE Medical Decision Narrative: Patient with above history and physical she is hypertensive but has no clinical signs or symptoms of endorgan damage therefore no emergency evaluation or treatment is needed from that standpoint and I do believe the majority of her hypertension is secondary to the her Suboxone withdrawal. Her signs and symptoms and physical exam are all consistent with that. I have strongly encouraged her to closely follow-up with [facility] and told her that utilizing the emergency department for chronic Suboxone maintenance is inappropriate however we will give her a dose today and a prescription for a few days to get her through till Sunday at which point she should follow-up with [facility]. Critical Care Critical Care Time Critical Care Time: No
[2025-02-07] MEDS: BUPRENORPHINE/NALOXONE 8MG/2MG ODT 1 EACH SL (10:34)
[2025-02-07] MEDS: ACETAMINOPHEN 500MG TAB 1000 MG PO (10:42)
[2025-02-07 10:46] VITALS: BP 133/98; PULSE 55; PULSE 56; RESP 16; TEMP 36.6; O2SAT 99
== END 2025-02-07 10:55 | disposition home or self-care (01) ==
PROVIDERS: Emergency Provider Student in an Organized Health Care Education/Training Program; PCP Family Medicine
DX: F11.23 Opioid dependence with withdrawal (principal); F17.210 Nicotine dependence, cigarettes, uncomplicated; I10 Essential (primary) hypertension
CPT/HCPCS: 99283; J0574